=== PATIENT | male | born 1995 | race Caucasian/White ===

== ENCOUNTER 2022-01-27 08:00 | Outpatient (RCR) | payer OTHER, MEDICAID, SELFPAY ==
--- NOTE | 2022-01-27 09:00 | BH.COMM ---
Communication Note - Communication with Client Communication Note: Met with pt to update pre-admission screening. Completed initial paperwork. Completed [place] Suicide screening. Low-moderate risk. Consulted with Dr. Meek with plan to admit to [facility] level of care with dx of F33.2
--- NOTE | 2022-01-27 09:00 | BH.COMM_ITS ---
Communication Note - Communication with Client Communication Note: Met with pt to update pre-admission screening. Completed initial paperwork. Completed [place] Suicide screening. Low-moderate risk. Consulted with Dr. Meek with plan to admit to [facility] level of care with dx of F33.2
--- NOTE | 2022-01-27 10:05 | BH.SGPN.GN ---
Behaviors/Verbalizations/Mental Status: [] Client alert and oriented, neatly dressed and groomed. Eye contact good. Motor activity appropriate. Speech within normal limits. Affect congruent, mood euthymic. Thoughts linear, logical, no signs of hallucinations or delusions. Client Response/Progress/Benefit: [] Client's first day in program and as an active participant in group discussions. Attentive during psychoeducation on 4 types of conflict styles (Competing, Collaborating, Avoiding, and Accommodating). Worked with group to define conflict and identify how conflict is helpful. With peers identified barriers to addressing or managing conflict which included: fear of upsetting others, avoidance, high emotions, and poor communication. Client believes he uses the avoidant and competing style the most. Client shared this style leads to him not having a gan area in his responses and it makes relationships fail. Benefited from group due to increase insight and awareness of benefits to conflict, conflict styles, and obstacles to managing conflict. Will continue in IOP to utilize positive coping skills, gain healthier core beliefs, and increase overall functioning. Narrative Note: []
--- NOTE | 2022-01-27 11:05 | BH.SGPN.GN ---
Behaviors/Verbalizations/Mental Status: [] Client alert and oriented, neatly dressed and groomed. Eye contact good. Motor activity appropriate. Speech within normal limits. Affect congruent, mood euthymic. Thoughts linear, logical, no signs of hallucinations or delusions. Client Response/Progress/Benefit: []Client engaged in session AEB contributing to discussion and engaging in activity. Client did well to review current conflict style and its impact on mental health. Attentive during discussion on strategies for more effectively managing conflict in personal life. Client participated in activity and did well to be assertive and collaborating. Client given handout on fair fighting rules. Client indicated that he was going to work on reducing his stonewalling. Client shared he will avoid conflict event when it might benefit him to work through things. Appeared to benefit from gaining strategies to help client better manage conflict. Will continue IOP tx to reduce negative thinking patterns, increase overall functioning, and increase self-care. Narrative Note: []
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
[2022-01-28 10:30] VITALS: BP 112/59; PULSE 44
--- NOTE | 2022-01-28 11:15 | BH.SGPN.GN ---
Behaviors/Verbalizations/Mental Status: []Pt alert and oriented, casually dressed and groomed. Eye contact good. Motor activity appropriate. Speech within normal limits. Affect constricted, mood anxious. Thoughts linear, logical, no signs of hallucinations or delusions. Client Response/Progress/Benefit: []Pt participated at times during group discussions. Attentive during psychoeducation on the 4 A's of Coping with Stress (Avoid, Alter, Adapt, Accept). Participated in experiential activity in which group members had to utilize stress management skills in the moment. Pt agreed with peers that their anxiety and urge to stop was a barrier but pt worked well with peers to problem-solve. Pt engaged in review of the 4 A?s and picked wanting to work on altering work situations by challenging ?my pride? and asking for help and accepting it. Benefited from processing in the moment stress management strategies and identifying new ways to cope with stress. Will continue in IOP tx to prevent decompensation, improve daily functioning, and gain healthy coping skills. ? Narrative Note: []
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
--- NOTE | 2022-01-28 12:24 | BH.DR.ITP ---
Initial Treatment Plan Patient Information Visit Information: ADMISSION DATE: EXPECTED LOS: 4-6 weeks Problems/Symptoms Problem #1:: Mood instability Symptom:: Depression, sadness, hopelessness, worthlessness, guilt, biological disruption of sleep, biological disruption of appetite, decreased concentration, passive thoughts of , recent fleeting, passive suicidal ideation Symptom:: Symptoms of hypomania occurring once or twice a month possibly Problem #2:: Anxiety Symptom:: Worry, rumination, panic attacks, flashbacks, nightmares, reexperiencing, avoidance
--- NOTE | 2022-01-30 09:05 | BH.SGPN.GN ---
Behaviors/Verbalizations/Mental Status: [] Eye contact is good. Motor activity is appropriate. Appearance is disheveled. Speech is Appropriate. Mood is depressed. Affect is flat. Thoughts are linear and logical. No evidence of psychosis. Reviewed daily check in sheet and no reports of suicidal ideations or intent. Client Response/Progress/Benefit: [] Pt participated at times during the group discussion. Attentive. Daily symptom tracker notes 09/25 for depression and anxiety. Emotion for today is ?exhausted?. Mental health wins are ? I caught my thoughts while at work?. He elaborated on how he was able to reframe and challenge thoughts and incorporate assertive communication which worked out well during an interaction with a customer. His stressor involves his relationship with a female friend. He is vague regarding the relationship between them however states it has become strained recently. Progress noted per pt report. Benefited from group support, encouragement, and feedback. Will continue in IOP to maintain safety, increase healthy coping, and improve functioning. Narrative Note: []
--- NOTE | 2022-01-30 11:10 | BH.SGPN.GN ---
Behaviors/Verbalizations/Mental Status: []Pt alert and oriented, casually dressed and groomed. Eye contact good. Motor activity appropriate. Speech within normal limits. Affect constricted, mood anxious. Thoughts linear, logical, no signs of hallucinations or delusions. Client Response/Progress/Benefit: []Pt receptive of session, engaged throughout AEB pt actively listening and contributing to discussion, as well as taking notes.? Pt participated in the experiential activity and did well to communicate ideas with peers and manage emotions. Pt identified he felt anxious and used breathing. Pt and group processed how the emotions and perspective of the group impacted the activity. Group worked together to identify different coping skills to help manage pitfalls. Pt identified pitfalls they struggle with such as isolating and letting self-doubt control him. Pt will work on overcoming pitfalls by setting at least one intention a day. Benefited from identifying personal pitfalls and strategies to overcome these pitfalls. Will continue IOP tx to prevent decompensation, reduce negative thinking, and improve daily functioning. ?? Narrative Note: []
--- NOTE | 2022-02-02 09:00 | BH.SGPN.GN ---
Behaviors/Verbalizations/Mental Status: []Pt alert and oriented, casually dressed and groomed. Eye contact good. Motor activity appropriate. Speech within normal limits. Affect flat, mood anxious and depressed. Thoughts linear, logical, no signs of hallucinations or delusions. Reviewed pt?s symptom tracker, no risk for suicidal ideation, plan, or intent as of 02/02/22 Client Response/Progress/Benefit: []Pt responded well to session, attentive and receptive to support from peers. Pt reports feeling frustrated with himself this morning for being in such as spiral. Pt shared when he is depressed it is like being in the upside down where pt's reality is distorted. Pt shared he struggles to see a different way and to reach out for help when he is in a depressed episode. Pt did have some positives including going to the fair with his children and using skills while he was there. Pt appeared to benefit from emotional support and connecting with peers. Pt will continue IOP tx to prevent decompensation, gain healthy coping skills, and improve overall functioning. Narrative Note: []
--- NOTE | 2022-02-02 10:00 | BH.SGPN.GN ---
Behaviors/Verbalizations/Mental Status: [] Eye contact is good. Motor activity is appropriate. Appearance is casual. Speech is Appropriate. Mood is euthymic. Affect is congruent. Thoughts are linear and logical. No evidence of psychosis. Client Response/Progress/Benefit: [] Pt was an active participant in group discussions. Attentive during psychoeducation. Participated with peers in experiential activity. Pt participated in an interactive discussion with peers in which they worked together to define what coping skills are. Group then identified unhealthy coping skills which included; lashing out, hurting oneself, isolating, substance abuse, ignoring, sleeping to escape, and retail therapy. Psychoeducation on internal vs external coping skills. After experiential activity pt identified that I have poor internal and external coping skills. Shared that his coping base is not good. Benefited from increased awareness and education the benefits of have both internal and external coping skills. Will continue in IOP to maintain safety, prevent decompensation, and to stabilize mood. Narrative Note: []
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
--- NOTE | 2022-02-04 12:50 | BH.MDN_ITS ---
Multi-Disciplinary Note - Note 60-min Individual Time Started:: 11:30 Date: 02/04/22 Purpose of session/treatment goals addressed:: Risk assessment, pt's had called in this AM stating that pt verbalized to her that he was suicidal last evening and cut himself. States that he was isolating as well. Eye Contact:: Fair Motor Activity:: Restless Appearance:: Casual Speech:: Appropriate Mood:: Depressed Affect:: Flat Thoughts:: Linear, Logical, No evidence of hallucinations/delusions noted Staff Interventions:: completed risk assessment / safety planning Client Response:: Met with pt to discuss last evening and the days prior. Pt reports that he had been more depressed since Wednesday afternoon. No specific trigger noted as he reports that he is just in my head. After discussing further he has been ruminating on a long-time friendship with Saul and is fearful that things will change due to recent changes in Saul's life. He left work early yesterday due to his mental health stating I just felt safer at home. Ruminating thoughts revolving around friendship led to other thoughts that others are mad or hate me. Further stressor was that he has not been sleeping well for the past 3 days. He just shared today that he ran out of his Trazadone which helps him fall asleep. Pt reports that last evening he superficially cut himself on his left wrist. Hx of self-injurious behaviors. He states that he had a moment with intent to cut deeper however I just couldn't do that. Protective factors were his children and his friends. States I slammed the knife down and went upstairs. He then eventually was able to fall asleep. In the AM he disclosed everything to his and came to [facility]. According to his he was apathetic in the AM. This AM pt reports on tracker 2/5 for suicidal thoughts and 1/5 for intent. He filled out what his scores were yesterday (even though he was not here) and they were higher showing decreased intent from yesterday. He denies active suicidal ideations, plan, or intent with this therapist for today. He admits to passive thoughts of and survival ambivalence which he reports had been fairly consistent since Wednesday. He contracts for safety. Reports protective factors and is future-oriented. I'm mostly angry that it got as bad as it did yesterday. We began to reframe, challenge, and develop realistic affirmations to help him with negative automatic thoughts. We reviewed the events and thoughts yesterday and identified strategies that could have been implemented to ease distress. We then developed a safety plan for this evening which included recognizing warning signs, internal coping skills, reasons/motivations to live, people and settings that provide distraction, supports to call when in crisis, and ways to make the environment safe. He agreed to have his lock up knives and medications. No access to guns. was called after session to discuss symptoms and plan. She is agreeable. Risks/Concerns:: refer above. Denies suicidal ideations, plan, or intent. No hx of attempts. Reports passive thoughts of and survival ambivalence and ruminations since Wednesday along with poor sleep led to superficial cutting last evening. Hx of self-injurious behaviors. While cutting he reports thought with intent to cut deeper however stated I couldn't do it. Disclosed to and attended treatment today. Suicidal ideation with intent lasted only moments. Motivated. Protective factors kept him from harming self. Contract for safety. We discussed voluntary admission and pt declined. Reports feeling better after coming in today and decreased symptoms. Progress Toward Goals/Plan:: No progress noted. Completed safety plan (Refer above). Refill on Trazadone was also called in to help with sleep which according to pt was significant contributor to decompensation. Usually if I get good sleep it doesn't get to bad. He reports these depressive episodes typically last 3-4 days which he is on day three. Plan is to continue in IOP to maintain safety, prevent decompensation, and increase healthy coping. Pt agreeable to calling off work for tonight and tomorrow. Agreeable to coming into IOP tomorrow. Will check in with pt this afternoon. Time Stopped:: 12:30
--- NOTE | 2022-02-04 14:14 | BH.COMM_ITS ---
Communication Note - Communication with Client Communication Note: Checked in with pt via phone call. Pt is doing okay at home, reports he is relaxing and plans to watch a movie with his kids later. Pt talked to his boss and will be off work the next two days. Pt also got one of his medications refilled which will hopefully help pt with sleep. Pt continues to contract for safety and will be at [facility] tomorrow.
--- NOTE | 2022-02-05 09:05 | BH.SGPN.GN ---
Behaviors/Verbalizations/Mental Status: [] Eye contact is poor. Motor activity is appropriate. Appearance is casual. Speech is Appropriate. Mood is depressed. Affect is flat. Thoughts are linear and logical. No evidence of psychosis. Reviewed daily check in sheet and pt reports 2.5 for suicidal ideation and 0/5 for intent. This is improved from yesterday. Client Response/Progress/Benefit: [] Pt participated when prompted. Attentive. Daily symptom tracker notes 4/5 for depression and 3/5 for anger. Mental health win was that I used skills yesterday to get out of my head. He continues to report depression and distress. Primary stressor are external ( and friend) however he continues to ruminate excessively. He did not elaborate more on his stressors and group did not pressure him. No progress noted from yesterday. Benefited from group support and encouragement. Will continue in IOP to maintain safety, prevent decompensation, and increase healthy coping. Narrative Note: []
--- NOTE | 2022-02-05 10:26 | BH.COMM ---
Communication Note - Communication with Client Communication Note: Pt left group earlier today due to stomach issues. Pt denied any active suicidal ideations, plan, or intent to this therapist. Pt contracts for safety. Pt reported his took his medications. Pt's daily symptom tracker scores for SI were lower today than they were earlier this week as well. Pt is scheduled to be in IOP tomorrow.
--- NOTE | 2022-02-06 09:22 | BH.COMM ---
Communication Note - Communication with Client Communication Note: Pt no called no showed for IOP tx today. Therapist attempted to call pt twice and pt's phone was not accepting calls at this time. Therapist called pt's and shared last night was really rough. Pt was struggling to keep himself safe, but did not do anything to hurt himself last night. Pt's has pt's medications and secured all the knives in the house. Pt told that pt was leaving her, so is not staying with pt. Pt spoke to his daughters this morning per , but there is no support there with pt today. Due to pt experiencing a significant stressor, recent SI and self-harm, and lack of support with pt today, this therapist will be calling Stephanie VENTURA for a safety check.
--- NOTE | 2022-02-06 09:28 | BH.COMM ---
Communication Note - Communication with Client Communication Note: Therapist called Stephanie VENTURA for a safety check on pt. See additional communication note for details.
--- NOTE | 2022-02-06 09:51 | BH.COMM_ITS ---
Communication Note - Communication with Client Communication Note: Therapist spoke with policy officer. Pt is safe and was at home. Therapist called to tell her pt was safe.
--- NOTE | 2022-02-06 09:51 | BH.COMM ---
Communication Note - Communication with Client Communication Note: Therapist spoke with police lieutenant patrol. Pt is safe and was at home. Therapist called to tell her pt was safe.
--- NOTE | 2022-02-06 11:04 | BH.COMM ---
Communication Note - Communication with Client Communication Note: Pt showed up to IOP. Pt expressed being suicidal and unable to keep self safe. Pt agreeable to walk with therapist to the ER. was informed.
--- NOTE | 2022-02-06 11:06 | BH.DS_ITS ---
Discharge Summary - Demographics Date of Admission:: 01/27/22 Discharge Date: 02/06/22 Presenting Problems at Admission:: Pt is a 26-year-old male with a history of depression and anxiety. Pt has no previous psychiatric admissions. Pt was referred to [facility] by his outpatient therapist and due to worsening depressive symptoms since May 2021. At admission, pt endorsed poor sleep, loss of appetite (100 pound weight loss in the last year), isolation, hopelessness, worthlessness, and anhedonia. Pt endorsed passive thoughts of and had suicidal ideations within the past few months. Pt sees a counselor weekly, but this was not meeting the level of care pt needed for his symptoms. Pt also endorsed racing thoughts, panic attacks, and erratic moods. Pt's symptoms are currently impacting his overall functioning. Discharge Diagnoses:: Bipolar 2 disorder, most recent episode depressed; Generalized anxiety disorder; PTSD; Nicotine and marijuana use disorder Reason for Discharge:: Due to presenting suicidal ideations, significant stressor last night, and inability to contract for safety, it was determined that pt was in need of higher level of care to maintain safety. Pt voluntarily went to the [facility] ER to be further evaluated for suicidal ideations. Pt will be discharged from [facility] at this time due to needing a higher level of care. - Treatment Progress During Treatment & Response: Limited progress as pt stated [facility] on 01/27/22. Pt was cooperative and receptive to help from staff. Issues Still to be Addressed:: Depressed mood, suicidal ideations, self-hate, relationship issues, anxiety, lack of sleep, no appetite, racing thoughts, and mood instability. Discharge Recommendations/Instructions:: Pt recommended to follow instructions from the ER and inpatient team where pt will be transferred. Pt can return to [facility] when he discharges from the hospital. Discharge Handout: Complete Discharge Handout with client on aftercare options and continuity of care.
== END 2022-02-06 10:58 ==
LOC: BHIOP 08:00
PROVIDERS: Visit Provider Psychiatry & Neurology Psychiatry
DX: F31.81 Bipolar II disorder (principal); F41.1 Generalized anxiety disorder; F43.10 Post-traumatic stress disorder, unspecified; F17.200 Nicotine dependence, unspecified, uncomplicated; F12.99 Cannabis use, unspecified with unspecified cannabis-induced disorder; Z79.899 Other long term (current) drug therapy
CPT/HCPCS: H2012; S9480; 90832; 90837; 90853

== ENCOUNTER 2022-02-06 10:18 | Emergency (ER) | payer OTHER, MEDICAID, SELFPAY ==
--- NOTE | 2022-02-04 09:05 | BH.SGPN.GN ---
Behaviors/Verbalizations/Mental Status: [] Eye contact is poor. Motor activity is appropriate. Appearance is casual. Speech is Appropriate. Mood is depressed. Affect is flat. Thoughts are linear and logical. No evidence of psychosis. Reviewed daily check in sheet and no pt reports 2/5 for suicidal thoughts and 2/5 for intent. Client Response/Progress/Benefit: [] Pt participated only when prompted. Distracted. Poor eye contact. Daily symptom tracker notes 5/5 for depression and 3/5 for anxiety. 2/5 for self-harm. Pt shared that his mental health win was that ?I called off work yesterday due to my mental health?. Pt has struggled to call off when overwhelmed physically or emotionally in the past. States that he is not in a good place today stating ?I?ve been in my head a lot?. He did not elaborate and was not pressured by therapist/group. No progress noted. Limited benefit. Will continue in IOP to maintain safety and prevent decompensation. Narrative Note: []
[2022-02-06 10:19] VITALS: BP 132/82; PULSE 89; RESP 18; TEMP 36.6; O2SAT 100; BMI 23.4
--- NOTE | 2022-02-06 10:32 | EKG12_ITS ---
Test Reason : MEDICAL CLEARANCE Blood Pressure : / mmHG Vent. Rate : 062 BPM Atrial Rate : 062 BPM P-R Int : 162 ms QRS Dur : 106 ms QT Int : 400 ms P-R-T Axes : 065 041 059 degrees QTc Int : 406 ms Normal sinus rhythm Normal ECG Confirmed by FREDDY BOWSER, QAMAR ([id number]), digital editor JESSICA SANABRIA ([id number]) on 02/09/2022 10:57:08 AM Referred By: Confirmed By:QAMAR HAYES MD
--- NOTE | 2022-02-06 10:33 | EX.ED.VIS.PS ---
HPI HPI - Psych History of Present Illness Chief Complaint: Suicidal Informant: patient and mental health staff Narrative Narrative: 26-year-old male presenting to the emergency department from the [facility] program for which she was referred to for the evaluation of suicidal ideation. He tells me that he sees the world with a veil over his eyes and views it that everybody is mad or angry at him. He states that few days ago he was hostile towards himself meaning that he began to cut his left wrist. Does have a history of cutting behavior. Last night he got into an argument with one of his friends and got in his car to clear his head. He was about to run out of gas so he went home and was unable to clear his head and got into an argument with his and said things which he does not expound upon. He states that she kicked him out. He has been on trazodone for approximately 4 months through an outpatient provider in [place]. He states the Prozac that he was prescribed he has not been consistent with. He admits to recreational marijuana use 1 time per week. He has 2 children ages 6 and 3 which are currently with their mother. He states he cannot contract for safety. [facility] Medical History Bipolar 2 disorder Cannabis use disorder Generalized anxiety disorder Nicotine use disorder PTSD (post-traumatic stress disorder) Home Medications fluoxetine 20 mg capsule (Prozac) 20 mg PO DAILY 01/28/22 [History Last Taken Unknown] trazodone 50 mg tablet 100 mg PO QHS 01/28/22 [History Last Taken Unknown] Allergy/AdvReac Type Severity Reaction Status Date / Time No Known Allergies Allergy Verified 02/06/22 10:22 Social History (Updated 02/06/22 @ 10:[address] Marlo Roca DO) Smoking Status: Never smoker substance use type: marijuana ROS ROS ED Constitutional Constitutional ED: Denies chills or weight loss Eyes Eyes: Denies change in vision or diplopia ENT ENT ED: Denies ear pain, rhinorrhea or sore throat Cardiovascular Cardiovascular: Denies chest pain, orthopnea, palpitations or racing heartbeat Respiratory/Chest Respiratory/Chest: Denies cough, dyspnea or orthopnea Gastrointestinal Gastrointestinal: Denies abdominal pain, diarrhea, nausea or vomiting Genitourinary Genitourinary ED: Denies dysuria, hematuria or urinary frequency Musculoskeletal Musculoskeletal: Denies arthralgias or myalgias Integumentary Denies abscess or rash Neurologic Neurologic: Denies headache(s) or weakness Psychiatric Psychiatric: Reports depression, suicidal ideation and suicidal thoughts; Denies anxiety Endocrine Endocrinology: Denies polydipsia, polyphagia or polyuria Allergic/Immunologic Allergic/Immunologic ED: Denies mouth swelling, tongue swelling or urticaria EXAM Physical Exam Const Vital Signs: 02/06/22 10:19 02/06/22 11:18 02/06/22 12:00 Temperature 97.9 F Temperature Source Temporal Pulse Rate 89 Respiratory Rate 18 18 18 Blood Pressure 132/82 H Blood Pressure Mean 98 Pulse Ox 100 Oxygen Delivery Method Room Air 02/06/22 13:00 02/06/22 13:25 Temperature Temperature Source Pulse Rate 62 Respiratory Rate 18 18 Blood Pressure 122/84 H Blood Pressure Mean 96 Pulse Ox 98 Oxygen Delivery Method Room Air Positive well nourished and well developed General Appearance ED: well developed HEENT Reports normocephalic, head/scalp atraumatic and moist mucous membranes Eyes PERRL and EOMs intact bilaterally Neck no lymphadenopathy, supple and no JVD Resp normal respiratory effort and clear to auscultation bilaterally Cardio regular rate, regular rhythm and no murmurs GI normal to inspection, nondistended, normoactive bowel sounds and non-tender Palpation: soft Back/Spine no CVA tenderness and normal ROM Extremity normal to inspection General Extremety ED: Negative for edema General Extremity: Negative for edema Neuro oriented x3 and CN's II-XII intact bilaterally Sensorium / Orientation: alert Motor Exam: strength 5/5 throughout Psych mental status grossly normal Appearance: grossly normal Attitude: guarded Activity / Motor Behavior: avoids eye contact Speech: slow Mood & Affect: depressed, sad and flat affect; Negative for tearful Thought Process: normal thought process Thought Content: suicidality Attention / Concentration: attention grossly intact Memory / Cognition: memory grossly intact Skin no rashes or lesions noted and no wounds MDM MDM MDM Narrative Medical decision making narrative: Toxicology work-up is significant for cannabis which she admits to. CBC CMP within normal limits. COVID test is negative. Patient was evaluated by social work who is in agreement that the patient would be best served by psychiatric evaluation. We currently have accepting to [facility] in [place]. The patient has been cooperative and nonviolent since here in the department. Lab Data Attestation: I reviewed the patient's lab results. Labs: Laboratory Results - last 24 hr 02/06/22 02/06/22 02/06/22 10:45 10:45 10:45 WBC 4.4 RBC 5.50 Hgb 16.3 Hct 48.0 MCV 87.3 MCH 29.6 MCHC 34.0 RDW Std Deviation 38.2 RDW Coeff of Stan 11.9 Plt Count 224 MPV 9.7 Immature Gran % (Auto) 0.200 Neut % (Auto) 72.2 H Lymph % (Auto) 14.7 L Billings % (Auto) 12.5 H Eos % (Auto) 0.2 Baso % (Auto) 0.2 Absolute Neuts (auto) 3.2 Absolute Lymphs (auto) 0.65 L Nucleated RBC % 0 Sodium 142 Potassium 4.0 Chloride 110 H Carbon Dioxide 24.0 Anion Gap 8 BUN 13 Creatinine 0.95 Estim Creat Clear Calc 123.30 Est GFR (MDRD) Af Amer 122 Est GFR (MDRD) Non-Af 101 BUN/Creatinine Ratio 13.7 Glucose 100 Calcium 9.3 Total Bilirubin 0.80 AST 10 L ALT 17 Alkaline Phosphatase 56 Total Protein 8.2 Albumin 4.6 Globulin 3.6 Albumin/Globulin Ratio 1.3 Urine Opiates Screen Urine Methadone Screen Ur Barbiturates Screen Ur Phencyclidine Scrn Ur Amphetamines Screen MDMA (Ecstasy) Screen U Benzodiazepines Scrn Urine Cocaine Screen U Cannabinoids Screen Ur Drug Screen Comment Ethyl Alcohol < 3.0 02/06/22 12:06 WBC RBC Hgb Hct MCV MCH MCHC RDW Std Deviation RDW Coeff of Stan Plt Count MPV Immature Gran % (Auto) Neut % (Auto) Lymph % (Auto) Billings % (Auto) Eos % (Auto) Baso % (Auto) Absolute Neuts (auto) Absolute Lymphs (auto) Nucleated RBC % Sodium Potassium Chloride Carbon Dioxide Anion Gap BUN Creatinine Estim Creat Clear Calc Est GFR (MDRD) Af Amer Est GFR (MDRD) Non-Af BUN/Creatinine Ratio Glucose Calcium Total Bilirubin AST ALT Alkaline Phosphatase Total Protein Albumin Globulin Albumin/Globulin Ratio Urine Opiates Screen NEGATIVE Urine Methadone Screen NEGATIVE Ur Barbiturates Screen NEGATIVE Ur Phencyclidine Scrn NEGATIVE Ur Amphetamines Screen NEGATIVE MDMA (Ecstasy) Screen NEGATIVE U Benzodiazepines Scrn NEGATIVE Urine Cocaine Screen NEGATIVE U Cannabinoids Screen POSITIVE H Ur Drug Screen Comment Ethyl Alcohol EKG Initial EKG: Attestation: I personally reviewed and interpreted this EKG as follows: Comments: Normal sinus rhythm with a ventricular rate of 62 bpm Discharge Plan Triage Chief Complaint: Suicidal ED Provider: Marlo Roca Dx/Rx/DC Orders Clinical Impression: Depression, Suicidal ideation Prescriptions: No Action trazodone 50 mg Tablet 100 mg PO QHS fluoxetine [Prozac] 20 mg Capsule 20 mg PO DAILY Primary Care Provider: Care Physician,No Primary Referrals: Sanjiv Walker MD [Non-Staff] - Disposition Disposition: Psychiatric Hospital or Unit
--- NOTE | 2022-02-06 10:38 | NURSING ---
NO OLD EKGS
[2022-02-06 10:57] LABS: Absolute Lymphocyte Count 0.65 X10^3/uL (0.83-4.51); Absolute Neutrophil Count 3.2 X10^3/uL (2.0-7.7); Basophil# 0.01 X10^3/uL; Basophil% 0.2 % (0-1); Eosinophil# 0.01 X10^3/uL; Eosinophils% 0.2 % (0-5); Hemoglobin 16.3 g/dL (13.0-16.5); Lymphocyte # 0.65 X10^3/ul (0.83-4.51); Lymphocyte % 14.7 % (19-41); Mean Corpuscular Hgb 29.6 pg (27.0-32.0); Mean Corpuscular Volume 87.3 fL (80-94); Mean Platelet Vol. 9.7 fl (6.2-12.0); Monocyte# 0.55 X10^3/uL; Monocyte% 12.5 % (0-10); NRBC Flagged by Analyzer 0 % (0-5); Neutrophil # 3.18 X10^3/uL (2.7-7.7); Neutrophil % 72.2 % (47-70); Platelet Count 224 K/mm3 (150-450); RBC Distribution Width CV 11.9 % (11.6-14.6); RBC Distribution Width SD 38.2 fl (35.1-43.9); White Blood Count 4.4 K/mm3 (4.4-11.0)
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
[2022-02-06 11:13] LABS: ALB/GLOB Ratio 1.3 RATIO (0.9-2.4); AST(SGOT) 10 U/L (15-37); Alanine Aminotransfer ALT/SGPT 17 U/L (16-61); Albumin, Serum 4.6 g/dL (3.2-5.0); Alkaline Phosphatase 56 U/L (45-117); Anion Gap 8 (5-15); BUN 13 mg/dL (7-18); BUN/Creat Ratio 13.7 RATIO (10-20); Calcium,Total 9.3 mg/dL (8.5-10.1); Chloride 110 mmol/L (98-107); Creatinine, Serum 0.95 mg/dL (0.70-1.30); EST Glomerular Filtration Rate 101 mL/min (>60); Est Glom Filt Rate - Afr Amer 122 mL/min (>60); Globulin 3.6 g/dL (2.2-4.2); Glucose 100 mg/dL (74-106); Protein, Total 8.2 g/dL (6.4-8.2); Sodium Level 142 mmol/L (136-145)
[2022-02-06 11:18] VITALS: RESP 18
[2022-02-06 11:22] LABS: Alcohol, Blood (Medical)-Serum < 3.0 mg/dL
[2022-02-06 12:00] VITALS: RESP 18
[2022-02-06 12:30] LABS: Amphetamine Urine VISTA NEGATIVE (<1000 ng/mL); Barbiturate Urine VISTA NEGATIVE (< 200 ng/mL); Benzodiazepine Urine VISTA NEGATIVE (< 200 ng/mL); Cocaine Urine VISTA NEGATIVE (< 300 ng/mL); Ecstacy Urine VISTA NEGATIVE (< 500 ng/mL); Methadone Urine VISTA NEGATIVE (< 300 ng/mL); PCP Urine VISTA NEGATIVE (< 25 ng/mL); THC Urine VISTA POSITIVE (< 50 ng/mL); Vista UDS pH Range 5
--- NOTE | 2022-02-06 12:34 | CM.ED ---
MARIAA called [facility] and spoke to Giovanni at call center. MARIAA made referral. MARIAA faxed referral to [facility]. MARIAA spoke to Giovanni and he voiced he had all the information. Jelena OLIVARES
[2022-02-06 13:00] VITALS: BP 122/84; PULSE 62; RESP 18; O2SAT 98
--- NOTE | 2022-02-06 13:14 | ED.RN ---
REPORT ATTEMPT MADE FOR [facility]. THIS RN ASKED TO CALL BACK AFTER 30 MINS
--- NOTE | 2022-02-06 13:17 | NURSING ---
CALLED [facility], ETA IS 30 MIN
[2022-02-06 13:25] VITALS: RESP 18
--- NOTE | 2022-02-06 13:40 | CM.ED ---
Scott from [facility] Called. Patient accepted by Dr. Lua. Accepted at [facility]. Center 5 bed 2555. Report to [phone]. Scott requested that the pink slip, made out to [facility], be faxed to [phone]. MARIAA updated RN and dog food shredder operator. Jessy, school community relations coordinator to fax pink slip. Plan: [facility] Jelena OLIVARES
--- NOTE | 2022-02-06 13:48 | ED.RN ---
UPON ASSESSMENT OF PATIENT, PATIENT TELLS THIS RN THAT HE AND SIGNIFICANT OTHER ARE HOMELESS. THIS RN OFFERS PT AND RESOURCES. THEY STATE THEY ARE AWAITING VERIFICATION OF INCOME FOR AN APARTMENT. THIS RN MAKES JOHNSON FROM SOCIAL WORK AWARE.
== END 2022-02-06 13:48 ==
PROVIDERS: Emergency Provider Emergency Medicine; Visit Provider Emergency Medicine
DX: F31.81 Bipolar II disorder (principal); X78.9XXA Intentional self-harm by unspecified sharp object, initial encounter; F41.1 Generalized anxiety disorder; R45.851 Suicidal ideations; Z20.822 Contact with and (suspected) exposure to COVID-19; S61.512A Laceration without foreign body of left wrist, initial encounter; Z79.899 Other long term (current) drug therapy
CPT/HCPCS: 80053; 80307; 82077; 85025; 87811; 93005; 99284

== ENCOUNTER 2022-02-10 08:00 | Outpatient (RCR) | payer OTHER, MEDICAID, SELFPAY ==
--- NOTE | 2022-02-10 11:02 | BH.SGPN.GN ---
Behaviors/Verbalizations/Mental Status: []Client alert and oriented, casually dressed and groomed. Eye contact good. Motor activity appropriate. Speech within normal limits. Affect congruent, mood euthymic and anxious. Thoughts linear, logical, no signs of hallucinations or delusions. Client Response/Progress/Benefit: []Client responded well to session AEB completing the resilience worksheet provided. Client participated in the discussion of how each resiliency component can help increase personal resiliency and worked cooperatively with group to identify strategies to enhance each of the components discussed. Client reported he feels he is doing well with the resilience traits of ?take care of yourself? and ?self-awareness?. Client stated he would like to continue to develop resilience trait of ?take care of yourself? by challenging himself to get back into meal planning and prepping. Client seemed to benefit from discussing strategies for improving personal resilience and identifying resilience traits client already possesses. Progress limited as pt still new to IOP program following recent hospitalization. Will continue IOP tx to prevent decompensation, continue to promote use of healthy coping skills, and maintain safety. Narrative Note: []
--- NOTE | 2022-02-10 13:23 | BH.COMM ---
Communication Note - Communication with Client Communication Note: Met with pt to update pre-admission screening since recent hospitalization. Completed initial paperwork. Completed [facility] Suicide screening. moderate risk, though denies any current intent or access to lethal means. Consulted with Dr. Meek with plan to admit to [facility] level of care with dx of F33.2
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
--- NOTE | 2022-02-10 13:25 | BH.MDN ---
Multi-Disciplinary Note - Note 30-min Individual Time Started:: 09:05 Date: 02/10/22 Purpose of session/treatment goals addressed:: To assess for risk, as well as gather information on pt's current stressors, symptoms, triggers, and tx goals since recent hospitalization. Another goal was to build rapport and provide emotional support. Eye Contact:: Good Motor Activity:: Appropriate Appearance:: Casual Speech:: Appropriate Mood:: Anxious Affect:: Congruent Thoughts:: Linear, Logical, No evidence of hallucinations/delusions noted Staff Interventions:: motivational interviewing, CBT techniques, rapport building, strengths perspective, treatment planning, goal setting Client Response:: Pt responded well to session, open to meeting with therapist. Pt reports he feels his recent hospitalization had been very beneficial and allowed him the time needed to reflect upon his priorities and begin taking steps to address several stressors impacting his mental health. Pt reports he and his have seen much improvement in their relationship since hospitalization as communication is significantly better over the past few days. Reports he is taking some time away from his relationship with his best friend as well, as this has been an area of stress. Noted work as a current stressor as he does not feel ready to return at this time but has plans to discuss options for taking a leave of absence with his employer today. Pt reports plans to continue working with his outpatient therapist on deeper things and is excited to begin addressing questions he has had regarding his own gender identity. Reports this has been a difficult area to explore in the past but feels it is crucial in making progress with his mental health. Shared wanting to focus on creating a healthy routine and implementing more structure in his life, giving himself more bill, and practicing more consistent use of healthy coping skills as goals for [facility] tx. Risks/Concerns:: Pt denies any active suicidal ideations, plan, or intent as of 02/10/22. No HI. Future oriented. Progress Toward Goals/Plan:: Pt is starting his first week of readmission to [facility] tx following recent discharge due to hospitalization. He reports he is looking forward to learning more about his mental health and improving his understanding of healthy ways to manage his depression. Pt identifies his treatment goals as learning healthy coping skills to manage his depression symptoms and improving overall self-acceptance. Pt currently endorses anxiety, ruminations, racing thoughts, and questioning himself and his relationships. Pt has an outpatient therapist, Bertha, at [facility] that he will continue to see. Pt will continue IOP tx to prevent decompensation, gain healthy coping skills, and reduce negative thinking. Time Stopped:: 09:37
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
--- NOTE | 2022-02-17 11:10 | BH.SGPN.GN ---
Behaviors/Verbalizations/Mental Status: [] Client alert and oriented, casually dressed and groomed. Eye contact good. Motor activity appropriate. Speech within normal limits. Affect congruent, mood euthymic and anxious. Thoughts linear, logical, no signs of hallucinations or delusions. Client Response/Progress/Benefit: [] Client was an active participant throughout AEB contributing to discussion, providing personal examples, and taking notes. Client provided input during discussion on the types of support our supports can provide. Client able to identify current support system and barriers that get in the way of using supports by drawing out their own support net. Client reported after identifying what type of supports they receive; they gained awareness that they could benefit from more tangible supports. Client identified steps to achieve this by reaching out more and letting himself rely on supports. Client shared increasing tangible supports will help him minimize the stress on his shoulders. Client seemed to benefit from identifying the type of support client needs to work on improving. Client recommended to continue IOP tx to prevent decompensation, increase use of coping skills, and increase emotional regulation skills. Narrative Note: []
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
--- NOTE | 2022-02-18 09:02 | BH.SGPN.GN ---
Behaviors/Verbalizations/Mental Status: []Pt alert and oriented, casually dressed and groomed. Eye contact good. Motor activity appropriate. Speech within normal limits. Affect congruent, mood euthymic. Thoughts linear, logical, no signs of hallucinations or delusions. Reviewed pt?s symptom tracker, risk for suicidal ideation reported as within pt baseline, denies plan, or intent as of 02/18/22 Client Response/Progress/Benefit: []Pt responded well to session, attentive and reports connecting with fellow participants throughout. Pt reports feeling ?content this morning as pt shared he was able to reconnect with a close support and that this went well. Additionally reports a win as making plans to get a new wardrobe tomorrow as this is something he has put off since losing weight over the past year. Stressor identified as social media and pt identified a goal to deactivate his Facebook to remove this stressor for now. Pt appeared to benefit from support of the group environment. Pt to continue IOP tx to continue to improve stress management skills, reduce depression, and further improve mood stability. Narrative Note: []
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
[2022-02-18 11:11] VITALS: BP 119/72; PULSE 42
--- NOTE | 2022-02-18 12:35 | PCM.BH.PN_ITS ---
Progress Note Progress Note: Interim note: This note will serve as an interim note and for further detail please see in the initial psychiatric evaluation from February 10, 2022 for further reference. History of Present Illness/Interim History: The patient is a 26-year-old male who started the [facility] behavioral health IOP program on January 27, 2022. He then was admitted to [facility] for suicidal ideations from February 06 to February 09, 2022. After discharge then he is readmitted to the [facility] today. The patient's recent admission was triggered after he had difficulties with his whom he asked for divorce at the time. He also told his best friend Saul that he was in love with them. Since being admitted to [facility] he has worked things out with his who is a part of his new safety plan created at [facility]. His helps him with medication compliance and he also is taking a break from work after a positive talk with his boss. 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 He states that since discharge from the hospital recently he is having less panic attacks since he has been on the Prozac and his coping skills he has learned in the group are helping him deal with his mental health issues. He is now only having 1 panic attack a week about. Since discharge he is feeling better. He remains depressed mostly but he is somewhat hopeful now. He is sleeping about 6 hours a night which is normal for him and his energy level is low during the day. He feels that at times during the groups he spaces out and feels that he misses hearing things in group. When his attention returned to the group he does know where he has he just does not know what he missed hearing. This is an old problem for him. He has some questions about his gender issues and is working on that here with his therapist, Lelia mccullough at the [facility] IOP program. The patient states he is having some stomach pains which he is seeing his PCP today to talk about and treat. In addition he has reached out to supports outside of his and his friend Saul and this includes an old friend Ranjana whom he met up with over the weekend to catch up. Current Psychiatric Medications: [] Prozac 20 mg p.o. daily (x5 weeks); trazodone 100 mg p.o. nightly Mental Status Examination: [] The patient is a 26-year-old male who appears normal for stated age and is seen wearing a hat and is casually dressed and groomed with good hygiene. He has is ambulatory with a normal gait and alert and oriented to person place and time. He is cooperative and pleasant during the interview. He has no psychomotor agitation or retardation. Eye contact is good and speech is regular rate and rhythm and fluent with no pressure. Mood is depressed. Affect is constricted. Thought process is goal- directed and organized. Thought content: There is no evidence of thoughts of , suicidal ideation, homicidal ideation or urges to self-harm. There is no evidence of hallucinations, delusions or symptoms of carlos a. Reality testing is intact. Intelligence is average. Impulsivity is moderate. Judgment is intact. Insight is limited. Diagnoses: [] 1. Bipolar 2 disorder (most recent episode depressed) 2. Generalized anxiety disorder 3. PTSD 4. Strong cluster B traits 5. Nicotine and marijuana use disorder 6. Primary support issues Plan: [] The patient will continue 10 you and restart the IOP program at [facility] as the structure, support, education and group therapy will hopefully prevent worsening of the patient's symptoms which might require rehospitalization. He felt safe during the interview and if it anytime he does not feel safe he will let us know or go to the emergency room. The risks, clot complications, possible side effects and options with the medications were discussed with the patient and he understands and accepts these. The patient does not wish to increase his Prozac at this time. He agrees to increase his trazodone to 150 mg or even 200 mg nightly if needed to improve sleep. He plans to decrease his marijuana use somewhat. He will continue to follow-up with his outpatient providers and I will see the patient in follow-up in 2 weeks.
--- NOTE | 2022-02-18 12:43 | BH.DR.ITP ---
Initial Treatment Plan Patient Information Visit Information: ADMISSION DATE: EXPECTED LOS: 4-6 weeks Problems/Symptoms Problem #1:: Mood instability Symptom:: Depression, irritability, fatigue, decreased concentration, sadness Symptom:: Recent suicidal ideation Problem #2:: Anxiety Symptom:: Worry, rumination
--- NOTE | 2022-02-20 09:02 | BH.SGPN.GN ---
Behaviors/Verbalizations/Mental Status: []ye contact fair, casually dressed, motor activity appropriate, speech normal rate and tone, mood depressed, constricted affect, thoughts linear and intact, no evidence of delusions or hallucinations. Reviewed pt's symptom tracker, no indication of suicidal ideation or intent. Client Response/Progress/Benefit: [] Client respond well to session as evidenced by listening attentively to others and sharing thoughts and feelings. Client did not find mental positive as getting clothes yesterday that actually fit him. Client and friend additional positive was getting to spend quality time with his daughter yesterday playing video games together. Identified current stressor as myself because his mood continues to be irritable but tries to act fine on the outside. Client seen a benefit from expressing thoughts and feelings. Client to continue IOP to improve emotional regulation, challenge negative thought patterns, and prevent decompensation. Narrative Note: []
--- NOTE | 2022-02-20 10:10 | BH.SGPN.GN ---
Behaviors/Verbalizations/Mental Status: []Eye contact is good. Motor activity is appropriate. Appearance is casual. Speech is Appropriate. Mood is dysthymic and anxious. Affect is constricted. Thoughts are linear and logical. No evidence of psychosis. Client Response/Progress/Benefit: []Pt was an active participant in group discussions. Attentive during psychoeducation and participated in interactive discussions in which group defined self-care, discussed the benefits to self-care, and identified common myths surrounding self-care. Pt shared that ?self-care can make you more attentive in personal relationships? but that he often struggles to believe he deserves time for his own self-care. Group identified that self-care myths include; self-care is selfish, self-care is just personal hygiene, self-care should be fun, self-care is too time consuming, and I don?t deserve it. Pt and peers broke into smaller group and worked together to bust the myths associated with self-care. Benefited from increased awareness of the importance of self-care and its benefits. Progress noted in increased ability to provide personal insight into his own mental health. Will continue in IOP to prevent decompensation, increase emotion regulation skills and depression management, and improve functioning. Narrative Note: []
--- NOTE | 2022-02-20 11:10 | BH.SGPN.GN ---
Behaviors/Verbalizations/Mental Status: []Pt alert and oriented, neatly dressed and groomed. Eye contact good. Motor activity appropriate. Speech within normal limits. Affect constricted, mood content. Thoughts linear, logical, no signs of hallucinations or delusions. Client Response/Progress/Benefit: []Pt engaged participant AEB completing self-assessment worksheet and taking notes. Participated throughout group discussion on the various areas of self-care. Pt completed worksheet which identified current self-care practices and what self-care activities pt wants to start using. Pt selected spiritual self-care to begin practicing more consistently. Pt plans to do this by trying yoga and meditation. Appeared to benefit from completing the self-care evaluation and gaining insights into current self-care practices, as well as identifying areas in which pt would like to improve upon. Will continue IOP tx to reduce negative thinking patterns, improve self-compassion, and decrease depressive symptoms. Narrative Note: []
== END 2022-02-20 23:59 ==
LOC: BHIOP 08:00
PROVIDERS: Visit Provider Psychiatry & Neurology Psychiatry
DX: F31.81 Bipolar II disorder (principal); F41.1 Generalized anxiety disorder; F43.10 Post-traumatic stress disorder, unspecified; Z72.0 Tobacco use; F12.90 Cannabis use, unspecified, uncomplicated
CPT/HCPCS: S9480; 90832; 90853

== ENCOUNTER 2022-02-23 09:02 | Outpatient (RCR) | payer OTHER, MEDICAID, SELFPAY ==
[2022-02-21 01:50] VITALS: BP 119/72; PULSE 42
--- NOTE | 2022-02-24 10:05 | BH.SGPN.GN ---
Behaviors/Verbalizations/Mental Status: []Eye contact is fair to good. Motor activity is appropriate. Appearance is casual. Speech is Appropriate. Mood is depressed and anxious. Affect is congruent. Thoughts are linear and logical. No evidence of psychosis. Client Response/Progress/Benefit: []Pt was an active participant in group discussions. Attentive during psychoeducation and nodding as fellow participants shared. Participated with peers in experiential activity and provided ideas to the group. Pt participated in an interactive discussion with peers in which they worked together to define what coping skills are. Pt shared that we often turn to using unhealthy coping skills because they tend to be easier. Group then identified unhealthy coping skills which included; lashing out, negative self-talk, isolating, substance abuse, avoidance, sleeping to escape, and distracting self with other?s problems. Pt identified use of lashing out or isolating in the past. Psychoeducation on internal vs external coping skills. Benefited from increased awareness and education on the benefits of having both internal and external coping skills. Will continue in IOP to promote healthy skill application, continue to improve mood management, and prevent decompensation. Narrative Note: []
--- NOTE | 2022-02-24 11:07 | BH.SGPN.GN ---
Behaviors/Verbalizations/Mental Status: []alert and oriented, neatly dressed and groomed. Eye contact fair to good. Motor activity appropriate. Speech within normal limits. Affect constricted, mood anxious and depressed. Thoughts linear, logical, no signs of hallucinations or delusions. Client Response/Progress/Benefit: []Pt responded well to session AEB taking notes and providing input and examples throughout. Group discussed the different categories of coping skills which included distraction, emotional release, grounding, self-love, and thought challenging. Pt created a coping skill menu identifying various skills to try in each category. Pt?s coping skill menu included: time with pets, labeling feelings, exercise, dating ?myself? and setting boundaries, and looking at the evidence. Appeared to benefit from increasing repertoire of healthy coping skills. Pt is demonstrating progress in his increased engagement, but pt continues to struggle with mood instability that is often triggered by external situations. Pt will continue IOP tx to prevent decompensation, increase internal coping skills, and reduce negative thinking patterns. Narrative Note: []
--- NOTE | 2022-02-24 11:15 | BH.MDN_ITS ---
Multi-Disciplinary Note - Note 30-min Individual Time Started:: 09:19 Date: 02/24/22 Purpose of session/treatment goals addressed:: Purpose of session was to review treatment progress and discuss current stressors impacting mental health sx management. Additional purpose was to provide psychoeducation on client diagnosis of Borderline Personality Disorder. Eye Contact:: Good - tearful throughout Motor Activity:: Appropriate Appearance:: Casual Speech:: Appropriate Mood:: Dysthymic Affect:: Full Thoughts:: Linear, Logical, No evidence of hallucinations/delusions noted Staff Interventions:: thought challenging, psychoeducation on: - Borderline pers onality disorder and common diagnosis criteria, strengths perspective, goal setting Client Response:: Client responded well to session, open to meeting with therapist. Client shared he struggled with getting to group this morning as he had a difficult weekend and could feel depressive symptoms beginning to flare up. Expressed wanting to call and make an excuse as to why he could not make it and remain in bed instead. Client proudly shared using opposite action and positive self-talk to motivate him to attend group this morning. Went on to discuss stressors occurring over the weekend which included two friends canceling plans on him unexpectedly. Client reports ruminating on this and feeling as though this meant he is ?not worth it? to be friends with. Expressed struggling with self-worth much of his life and often feels he values other?s opinions of him over his own. Client connected to discussion on negative core beliefs and how they can impact relationships with self and others. Went on to indicate struggling with a need for external validation and has feared abandonment by others much of his life which has led him to experience relationship issues as a result. Shared previously researching his mental health sx and believes he may fit the Borderline Personality Disorder dx. Therapist normalized client emotions surrounding his disappointment about plans being cancelled and spent time providing psychoeducation on borderline personality disorder. Client expressed connecting with many of the potential risk factors including family and trauma hx. Reviewed with client several of the common criteria. Client described experiences with difficulties maintaining relationships, intense emotions, and history of self-harming behaviors. Client and therapist further processed how this has impacted his life and sense of self-worth. He was provided with an assessment to complete for homework to best identify which additional characteristics he connects with most and how these have impacted his mental health and relationships. Discussed impacts on relationship with self and ability to maintain consistent self-care as well. Risks/Concerns:: None noted. Pt denies any SI/HI plan or intent as of this date, 02/24/22 Progress Toward Goals/Plan:: Some progress noted as pt reports improved use of calming and thought challenge skills when feeling emotionally overwhelmed. Client continues to report difficulties in managing his interpersonal relationships, often related to poor communication and client struggles with distorted thinking patterns regarding others intentions or beliefs about client. Noted others canceling plans led to client struggling with increased isolation and negative thinking the past three days as a result. Client recommended continued IOP tx to further work on improving mood stability, increase healthy communication skills, as well as improve ability to function at baseline. Time Stopped:: 09:55
--- NOTE | 2022-02-25 08:55 | BH.SGPN.GN ---
Behaviors/Verbalizations/Mental Status: []Eye contact good, casually dressed, motor activity appropriate, speech normal rate and tone, mood euthymic and anxious, congruent affect, thoughts linear and intact, no evidence of delusions or hallucinations. Reviewed pt's symptom tracker, denies suicidal ideation, plan, or intent as of this date 02/25/22. Client Response/Progress/Benefit: []Pt responded well to session, attentive and providing supportive feedback at times throughout. Pt reports feeling exhausted this morning and shared that his two daughters have been struggling with sleep at night. Shared struggling with feeling more down as a result but has been taking steps to challenge his negative thoughts. Shared using an jc to track his mood and mental health more regularly as well. Pt appeared to benefit from group support and encouragement. Recommended continued IOP tx to continue to improve communication skills, reduce negative thinking, and further improve mood stability. Narrative Note: []
--- NOTE | 2022-02-25 10:00 | BH.SGPN.GN ---
Behaviors/Verbalizations/Mental Status: []Pt alert and oriented, neatly dressed and groomed. Eye contact good. Motor activity appropriate. Speech within normal limits. Affect congruent, mood euthymic. Thoughts linear, logical, no signs of hallucinations or delusions. Client Response/Progress/Benefit: []Pt responded well to session AEB sharing when prompted and listening attentively to others. Pt participated in group discussion defining boundaries and why having healthy boundaries is important. Pt shared he struggles with setting boundaries and not personalizing other people?s boundaries with him. Pt appeared to connect to psychoeducation on types of boundaries, including physical, emotional, and intellectual. Pt listened attentively and nodding throughout discussion in which group members shared personal examples of different types of boundaries. Pt appeared to benefit from increased knowledge of the types of boundaries and increased self-awareness of personal boundaries. Will continue IOP tx prevent decompensation, improve impulse control, and reduce negative thinking patterns. Narrative Note: []
--- NOTE | 2022-02-25 11:05 | BH.SGPN.GN ---
Behaviors/Verbalizations/Mental Status: [] Client alert and oriented, casually dressed and appropriately groomed. Eye contact fair. Motor activity normal. Speech within normal limits. Affect constricted, mood dysthymic. Thoughts linear and intact. no signs of delusions or hallucinations. Client Response/Progress/Benefit: [] Client responded well to session AEB listening attentively to peers, providing input when promoted, as well as taking notes throughout. Group discussed the different boundary setting styles which included rigid, porous, and flexible. Participated well in small group discussion identifying the pros and cons of each boundary setting style. Client stated he most often has porous boundaries which often leads to his own needs not being met. As a group discussed various strategies to set boundaries. Seemed to benefit from increased awareness of how different boundary styles can impact mental health Client will continue IOP tx to increase ability to regulate emotions, challenge negative thoughts, and increase application of learned skills.
--- NOTE | 2022-02-27 10:13 | BH.SGPN.GN ---
Behaviors/Verbalizations/Mental Status: []Client alert and oriented, casually dressed and groomed. Eye contact fair to good. Motor activity WNL. Speech appropriate rate/tone. Affect congruent, mood depressed and anxious. Thoughts linear, logical, no signs of hallucinations or delusions.?? Client Response/Progress/Benefit: []Pt responded well to session, provided input and supportive feedback throughout. Pt participated in group discussion regarding mental health benefits of change. Noted that change can result in improved relationship with oneself. Pt identified three small personal changes to improve their mental health as: improving self-talk, reducing rumination, and being in the present moment more often. Identified current barriers keeping pt from making those changes to be negative self-talk, fear of ?feeling?, and poor time management. Pt appeared to benefit from gaining awareness of personal changes that would improve mental health and the barriers keeping client stuck. Progress noted in pt level of insight regarding current barriers impacting mental health change and reports of increased self-care. Pt to continue IOP tx to further increase healthy coping skills, improve mood stability, and maintain current gains.? Narrative Note: []
--- NOTE | 2022-02-27 11:14 | BH.SGPN.GN ---
Behaviors/Verbalizations/Mental Status: []Client alert and oriented, casually dressed and groomed. Eye contact good. Motor activity appropriate. Speech within normal limits. Affect congruent, mood anxious and dysthymic. Thoughts linear, logical, no signs of hallucinations or delusions. Client Response/Progress/Benefit: []Pt responded well to session, participating in activity, and providing input throughout. Did well to process the activity and identify how skills used in accomplishing the task related to making healthy changes in one?s own life. Pt selected one change they would like to make and created a SMART goal to help make this change. Shared wanting to work on reducing negative self-talk. Discussed that this change would help client reduce depression and feel more confident and hopeful. Client?s goal was to start reaching out to supports and have then help pt reframe negative thoughts when recognizing pt using them. Client benefited from working with group to identify strategies to overcome barriers to change and create a plan for implementing one small change promoting personal growth. Client recommended to continue IOP tx to improve interpersonal relationships, further stabilize moods, as well as prevent decompensation. Narrative Note: []
--- NOTE | 2022-03-02 09:05 | BH.SGPN.GN ---
Behaviors/Verbalizations/Mental Status: [] Client alert and oriented, casually dressed and groomed. Eye contact normal. Motor activity appropriate. Speech normal. Affect congruent, mood euthymic. Thoughts linear, logical, no signs of hallucinations or delusions. Reviewed client?s symptom tracker, no risk for suicidal ideation, plan, or intent as of 03/02/22 Client Response/Progress/Benefit: [] Client responded well to group by actively participating throughout group. Reported that his emotion today was hopeful. Client shared stressor of being physically in pain and coping with it. Client indicated that overall he felt he has made some progress towards his MH goals with indicating he spent increased time with his kids and had a stress free weekend and make a change to get up earlier in the mornings to start his day off more positive. Client seemed to benefit from reflecting on the positives that come out of changes he has made. .He will continue IOP tx to increase coping skills, reduce irritability, and increase overall functioning. Narrative Note: []
--- NOTE | 2022-03-02 10:10 | BH.SGPN.GN ---
Behaviors/Verbalizations/Mental Status: [] Client alert and oriented, casually dressed and groomed. Eye contact good. Motor activity appropriate. Speech within normal limits. Affect congruent, mood euthymic. Thoughts linear, logical, no signs of hallucinations or delusions. Client Response/Progress/Benefit: [] Client responded well to session, attentive and providing input throughout. Participated in discussion of things that can keep people feeling trapped or stuck in life including; avoidance, unhealthy coping, isolation, inconsistent boundaries, and surrounding self with toxic people. Group discussed the connection between thoughts, emotions, and behaviors as well as how negative thinking can keep a person stuck. Client attentive during psychoeducation on maintenance cycles. Client able to identify negative thoughts that have kept client stuck which included ? I don't deserve better and there is someone always better than me. Client identified these thoughts lead him to isolate. Appeared to benefit from gaining awareness of how negative thoughts reinforce mental health symptoms and keep people stuck. Will continue IOP tx to prevent decompensation, increase anxiety management skills, and increase overall functioning. Narrative Note: []
--- NOTE | 2022-03-02 11:10 | BH.SGPN.GN ---
Behaviors/Verbalizations/Mental Status: [] Client alert and oriented, casually dressed and groomed. Eye contact good. Motor activity appropriate. Speech within normal limits. Affect congruent, mood euthymic. Thoughts linear, logical, no signs of hallucinations or delusions. Client Response/Progress/Benefit: [] Client responded well to session, contributing to discussion and providing supportive feedback. Client identified a negative thought that has kept him stuck. Client's thought was I don't deserve it. Client reported when he thinks this way, he isolates and becomes angry. Client worked to reframe the thought by finding more rational, realistic ways to look at the thoughts and then processed within group setting. Client reframed the thought to ?I know my kids deserve me as a good father? Client stated he will use positive self-talk to continue challenging negative self-talk. Client appeared to benefit from practicing challenging negative thinking. Client will continue IOP tx to increase overall functioning. Narrative Note: []
--- NOTE | 2022-03-02 14:40 | BH.MDN ---
Multi-Disciplinary Note - Note 45-min Individual Time Started:: 08:30 Date: 03/02/22 Purpose of session/treatment goals addressed:: Purpose of session was to process BPD workbook homework from prior session. Another purpose was to address client externalization and impacts on sense of self-worth, as well as introduce dialectical thinking. Set small self-care goal for week. Eye Contact:: Good Motor Activity:: Appropriate Appearance:: Casual Speech:: Appropriate Mood:: Anxious, Depressed Affect:: Congruent Thoughts:: Linear, Logical, No evidence of hallucinations/delusions noted Staff Interventions:: thought challenging, psychoeducation on: - Dialectical thinking, BPD relationship cycle, CBT techniques, strengths perspective, goal setting Client Response:: Client receptive of session, open to meeting with therapist. Shared he had an ?alright? weekend but struggled with negative thinking and personalization surrounding an interaction with his best friend. Client discussed having what he thought was a constructive conversation with this friend earlier in the week about ways to improve the relationship as it has recently been strained. However, went on to share becoming upset when this same friend made plans to spend time with his instead of him. Shared he experienced anger and intrusive thoughts that this friend does not care, that he isn?t worthy of being loved, and she was intentionally trying to upset him. Client indicated ruminating on this for much of the day which resulted in confronting his friend. Expressed ultimately realizing that she had not intentionally tried to upset him and they were able to work through the misunderstanding; however, he continued to struggle with feeling hurt and worthless. Client connected with common negative core beliefs associated with BPD and how these beliefs reinforce the BPD relationship cycle. Noted that he often pushes people away, lashes out, or engages in self-deprecation when feeling others are not reassuring him and his need to feel wanted or loved. Able to provide insight regarding relying on external reassurance to feel positive about himself and cited a need for his supports to express praise towards him to be secure in the relationship. Able to identify unhealthy impacts the need for external validation has had on his relationships and self-confidence. Connected with the importance of developing a healthy relationship with himself to begin to improve his relationships and reduce the need for external validation. Identified a small goal to make time each evening to practice positive self-talk and self-care. Risks/Concerns:: None noted. Pt denies any SI/HI plan or intent as of this date, 03/02/22 Progress Toward Goals/Plan:: Progress limited. Pt reports gaining insight from groups and individual sessions and reports actively working to apply coping skills learned. However, pt mood is strongly connected to his relationships and external stimulus. Pt able to recognize difficulties in managing his emotions, increased negative self-talk, and more intense sx when experiencing a stressor regarding his relationships. Pt specifically struggles with coping with feeling ignored or rejected and has experienced several setbacks involving both real and perceived rejects over the past two weeks. Pt however willing to continue working to better identify and address these sx through increasing awareness, improve use of thought challenging, and regularly engaging in self-care to improve relationship with himself. Reports increased hope since gaining insight into his BPD dx and is interested in further exploring this. Recommended continued IOP tx to further work on improving self-confidence, promote healthy interpersonal communication skills, as well as improve ability to function at baseline. Time Stopped:: 09:10
--- NOTE | 2022-03-09 08:57 | BH.MTP_ITS ---
Treatment Plan Review Date of Admission:: 02/10/22 Date of Treatment Plan Review:: 03/09/22 Admitting Diagnoses:: 1. Bipolar 2 disorder (most recent episode depressed). 2. Generalized anxiety disorder. 3. PTSD Current Diagnoses:: 1. Bipolar 2 disorder (most recent episode depressed). 2. Generalized anxiety disorder. 3. PTSD Patient's Response to Treatment:: Pt has struggled with calling off ill on a few occasions, but overall consistently attends IOP sessions he has signed up for. Pt often provides feedback and ideas to group sessions. Struggles with utilization of skills in everyday life. Status of Current Problems and Symptoms: Ongoing problems. Pt's marriage and difficulties with feeling rejected when close friends cancel plans continues to be significant source of stress. Pt often attributes problems and symptom to things that are outside his control and struggles to identify what he can do to improve his situation. Pt has shown limited progress as a result of difficulties applying distress tolerance skills in the moment and often citing external forces as the sole means for his mental health struggles. Due to this, pt has seen an increase in DSM-5 scores since admission, as at the time of admission pt has just discharged from inpatient hospitalization and was removed from external stressors for a period of time. Pt does however self-report improved hope and can identify healthy distress tolerance skills, though struggles with application. Problem #1 Problem Name:: Depression, SI, mood stability Status of Goals:: obj 1. partially met ongoing work encouraged. Pt is able to identify healthy coping skills like opposite action, grounding skills, affirmations, and doing activities that he enjoys. However, he struggles with consistently using skills. Pt's focus on waiting for an external situation to improve his mood or someone else to provide reassurance has been the primary barrier to this goal. Per DSM 5 score pt's depression has not decreased. obj 2 - partially met, ongoing work encouraged. Pt has learned about negative core beliefs and cognitive distortions. He can identify negative thoughts which impact his mood and does well in session to challenge and replace these. However, he struggles significantly with negative thoughts when supports are not available or disappoint him, which directly impacts his mood. Pt reports difficulties challenging thoughts outside of the tx environment and shares often feeding further into distortions as a result. Team Recommendations:: Team recommends continue current goal and objective. Continued use of motivational interviewing techniques to help pt realize importance of changing the way he manages external stressor and sara with disappointment. Help pt identify what he can do to improve his mood and situation in the moment. Problem #2 Problem Name:: Anxiety Status of Goals:: obj 1 - partially met. Pt is able to identify triggers for anxiety as well as calming skills like belly breathing, grounding and engaging his 5 senses. Pt struggles with using these skills outside treatment envi ronment. obj 2 ? partially met. Patient can identify specific distortions impacting and maintaining anxiety, however struggles with challenging and replacing these in the moment. Team Recommendations:: Team recommends continue current goal and objective. Continue to review healthy calming skills and help pt identify how to increase follow through of practicing skills every day.
--- NOTE | 2022-03-09 10:10 | BH.SGPN.GN ---
Behaviors/Verbalizations/Mental Status: []Client alert and oriented, casually dressed and appropriately groomed. Eye contact fair. Motor activity appropriate. Speech within normal limits. Affect congruent, mood euthymic. Thoughts linear, logical, no signs of hallucinations or delusions. Client Response/Progress/Benefit: [] Client connected with topic of anxiety and participated throughout, providing input and taking notes. Attentive during psychoeducation on different anxiety disorders and participated throughout interactive discussion defining anxiety and identifying cognitive and physiological symptoms of anxiety. Common cognitive symptoms identified by group included: ?what if thoughts?, all or nothing thinking, and predicting the future type thoughts. Physiological symptoms reported by patient included: leg twitch, heavy chest, low frustration tolerance, GI issues, and difficulty sitting still. Benefited from increased awareness and insight on anxiety and its impact. Will continue IOP tx to increase consistent use of healthy coping, challenge distorted thoughts and prevent decompensation.
--- NOTE | 2022-03-09 12:02 | BH.MDN ---
Multi-Disciplinary Note - Note 60-min Individual Time Started:: 11:32 Date: 03/09/22 Purpose of session/treatment goals addressed:: Risk assessment and safety planning. Pt's sx tracker indicated increased SI and pt indicated self-harming. Eye Contact:: Good Motor Activity:: Appropriate, Restless Appearance:: Casual Speech:: Appropriate Mood:: Anxious, Depressed Affect:: Congruent Thoughts:: Linear, Logical, No evidence of hallucinations/delusions noted Staff Interventions:: thought challenging, motivational interviewing, psychoeducation on: - distress tolerance skills, taught coping skills - reviewed several self-soothing alternatives to self-harming Client Response:: Met with pt to discuss elevated scores on daily sx tracker. Pt reports ?I woke up in a whirlwind? on Wednesday and struggling to manage his negative thinking. Shared that the previous day had been positive and that he had spent time with his family and close friend, but felt completely consumed by his negative thoughts the next morning. Upon further inquiry, pt able to identify the trigger as being home alone all day Wednesday and not hearing back from any of his supports when reaching out. Described feeling isolated and worthless when unable to connect with any supports, stating that he then noticed his thoughts becoming increasingly negative and telling himself things such as ?no one cares about me? and ?I?m worthless?. Disclosed attempting to use some healthy coping skills but ultimately self-harming when feeling the skills were not working as effectively as he had hoped. Reported self-harming to feel a sense of relief and not to end his life. Denies any active SI, plan, or intent and reports he often has passive thoughts of not existing but does not actually want to . Protective factors noted and reports willingness to seek out crisis services should he feel unable to maintain safety at any time. Contracts for safety. Pt connects with a strong need for external validation and support. Indicated he often struggles with finding an internal source of self-worth and only feels good about himself when others express appreciation for him. Able to recognize the impact his reliance on other?s has on ability to maintain stability and cope with when supports are either unavailable or may be the source of pt?s stress. Worked with pt to reframe and challenge negative automatic thoughts. Receptive of discussion on healthy distress tolerance skills and pt identified specific skills he is willing to begin practicing and utilize instead of self-harming. Pt identified plans to spend time with his children this evening and practice deep-breathing. Risks/Concerns:: refer above. Denies suicidal ideations, plan, or intent. No hx of attempts. Reports passive thoughts of and feeling ?damaged? or like a burden led to superficial cutting last evening. Hx of self-injurious behaviors. While cutting he reports thoughts of wanting to just feel something different. Denies any active ideation, plan, or intent. Suicidal ideation with intent lasted only moments. Motivated. Protective factors kept him from harming self. Contract for safety. Reports feeling better after speaking with fellow group participants. Future oriented. Protective factors noted Progress Toward Goals/Plan:: No progress, regression noted. Pt reports recently engaging in self-harming behaviors when feeling ignored and alone. Shared external stressors are often the cause of increased depression and emotion dysregulation. Noted that he has been struggling with feeling unwanted and like a burden. Struggling to challenge these thoughts and notes low self-worth. Struggled to identify any internal healthy coping skills he can use. Receptive of discussion reviewing several distress tolerance skills. Denies suicidal ideation and reports passive thoughts of not wanting to continue to feel the way he does but not actually wanting to . Denies engaging in any self-care activities as previously discussed in prior sessions. Plan is to continue in IOP to maintain safety, prevent decompensation, and increase healthy coping. Willing to create a safety plan for the evening
--- NOTE | 2022-03-11 09:05 | BH.SGPN.GN ---
Behaviors/Verbalizations/Mental Status: []Pt alert and oriented, casually dressed and groomed. Eye contact good. Motor activity appropriate. Speech within normal limits. Affect constricted, mood dysthymic. Thoughts linear, logical, no signs of hallucinations or delusions. Reviewed pt?s symptom tracker, no risk for suicidal ideation, plan, or intent as of 03/11/22 Client Response/Progress/Benefit: [] Pt responded well to session, attentive and providing support to peers. Pt reports feeling drained this morning as pt is feeling frustrated with himself and self-critical. Pt shared he has been trying to use healthy coping skills and he put up a positive affirmation on his mirror. Pt stated the positive affirmations worked for one day, but the next day, pt felt frustrated and ripped it down. Therapist reminded pt to practice self-compassion while working to change thinking patterns. Pt appeared to benefit from this reminder. Pt will continue IOP tx to prevent decompensation, improve overall functioning, and increase self-compassion. Narrative Note: []
--- NOTE | 2022-03-11 10:10 | BH.SGPN.GN ---
Behaviors/Verbalizations/Mental Status: [] Eye contact is good. Motor activity is appropriate. Appearance is casual. Speech is Appropriate. Mood is depressed. Affect is flat. Thoughts are linear and logical. No evidence of psychosis. Client Response/Progress/Benefit: [] Pt participated at times during the group discussions. Attentive during psychoeducation AEB note-taking. Participated in interactive discussion amongst peers on the definition and examples of crisis. Engaged in conversations as peers identified unhealthy responses to crisis which included; substance use, avoidance, isolation, sleeping, risky behaviors, retail therapy, over-eating, etc. Pt identified her devin signs to crisis which included isolation, foggy head, and pushing people away. Benefited from increased of crisis and personal warning signs. Will continue in IOP to prevent decompensation/re-admission, stabilize mood, and increase healthy coping. Narrative Note: []
--- NOTE | 2022-03-11 11:10 | BH.SGPN.GN ---
Behaviors/Verbalizations/Mental Status: []Pt alert and oriented, casually dressed and appropriately groomed. Eye contact good. Motor activity appropriate. Speech within normal limits. Affect constricted, mood anxious. Thoughts linear, logical, no signs of hallucinations or delusions. Client Response/Progress/Benefit: []Pt responded well to session as evidenced by pt listening attentively to others and providing strategies during discussion.? Pt identified personal warning signs for crisis and gained further awareness of earliest warning signs. Pt created a crisis action plan to help better manage warning signs for crisis. Pt able to create action plan for warning sign anger outbursts. Pt's action plan included: mindfulness, grounding tools, taking a step back, and communicating to supports about feelings. Pt appeared to benefit from creating a crisis action plan and increasing self-awareness. Pt will continue IOP tx to improve emotion regulation, challenge negative thoughts and prevent decompensation.
--- NOTE | 2022-03-13 09:05 | BH.SGPN.GN ---
Behaviors/Verbalizations/Mental Status: []Eye contact fair, casually dressed, motor activity appropriate, speech normal rate and tone, mood anxious and depressed, constricted affect, thoughts linear and intact, no evidence of delusions or hallucinations. Reviewed pt's symptom tracker, suicidal ideation within pt baseline, denies any current plan, or intent as of this date 03/13/22. Client Response/Progress/Benefit: []Pt responded well to session, attentive and providing supportive feedback at times throughout. Pt reports feeling ?flustered this morning. Identified mental health ?wins? as using opposite action to attend group this morning despite wanting to ?stay home and suffer?. Shared additional win as making plans for self-care with a support this afternoon to continue to improve his mood and prevent from engaging in unhealthy coping behaviors. Pt notes this as progress as he often refers to unhealthy means of emotional release. Shared his mood is his current stressor as well. Receptive of and appearing to benefit from supportive feedback and suggestions from the group. Pt to continue IOP tx to improve healthy coping skills, reduce unhealthy means of coping, and further improve mood stability. Narrative Note: []
--- NOTE | 2022-03-13 10:20 | BH.SGPN.GN ---
Behaviors/Verbalizations/Mental Status: []Pt alert and oriented, casually dressed and groomed. Eye contact good. Motor activity appropriate. Speech within normal limits. Affect constricted, mood dysthymic. Thoughts linear, logical, no signs of hallucinations or delusions. Client Response/Progress/Benefit: []Pt was an active?participant in group discussion. Group worked together to identify benefits of healthy relationships which include; improves mental health, encouragement, motivation, accountability, validation, connection, and personal growth. Group identified factors that lead to unhealthy relationships which included; co-dependence, gaslighting, not addressing issues, name-calling, and not setting boundaries.?Pt?s personal factors were fear of change, viewing stability as ?boring,? and ??being used to chaos.? Actively participated in group experiential activity and expressed ideas to group. Benefited from increased insight and awareness of benefits of healthy relationships and factors that contribute to unhealthy relationships. Will continue IOP tx to prevent decompensation, improve distress tolerance skills, and gain self-worth. Narrative Note: []
--- NOTE | 2022-03-16 08:42 | BH.MDN ---
Multi-Disciplinary Note - Note 60-min Individual Time Started:: 12:10 Date: 03/16/22 Purpose of session/treatment goals addressed:: To address current stressors, recent crisis assessment through the ER over weekend, increased SI, and to create a safety plan. Eye Contact:: Fair - tearful throughout Motor Activity:: Restless Appearance:: Casual Speech:: Appropriate Mood:: Depressed Affect:: Congruent Thoughts:: Linear, Logical, Other - distorted thoughts of self, No evidence of hallucinations/delusions noted Staff Interventions:: thought challenging, strengths perspective, completed risk assessment / safety planning - reviewed specific skills pt can use to maintain safety, other - Called pt's and reviewed, in agreement and has already secured all lethal means following prior ER visit. Client Response:: Pt responded well to session, open to meeting with therapist. Pt reports this weekend was difficult and that he was severely depressed for much of it. Pt stated he had a long week and was continue to stress about money which had him in a bad mood and then two of his friends had blown him off when they were supposed to hangout. Pt described feeling hurt and angry as a result, and began hearing his mother?s voice in his head telling him to ?just kill yourself? and ?you?re worthless?. Expressed trying to use some of the distress tolerance skills discussed in prior session but had difficulties focusing and therefore found them to be ineffective. Went on to indicate he had tried to read positive encouragement statements he had said from friends in the past and this only made him angrier. Shared telling himself ?they don?t really care, these are all lies?. Began experiencing worsening SI with vague thoughts of overdosing on his trazodone. Reached out to his who took pt to ER where he met with crisis. Pt reports this was not helpful as he felt they did not understand. Created a safety plan while at ER. States at time of ER visit he did not actually want to but did not know how else to cope. Shared struggling with depressive sx much of the next day and spent most of the day laying on the basement floor crying. Denies attempting to use any healthy skills yesterday. Able to see how this maintained his negative thoughts and depressive sx throughout the day. Pt could identify healthy coping skills such as journaling, talking to support, using dialectical thinking, spending time with his kids, and playing video games. Pt's is able to monitor pt today and pt feels like he can tell her if he is getting worse and needs to go to the ER. Pt is scheduled to return to IOP on Wednesday. Risks/Concerns:: Pt scored higher than baseline today on the daily symptom tracker. Pt admits to having fleeting SI over the weekend with thoughts of overdosing on trazodone which he went to the ER for. Pt reports he did not and does not currently want to but does not know how else to cope. Pt has fleeting SI daily but denies any active plan or intent, no other methods. Pt is sure he can keep himself safe, and is not an imminent threat to self. Pt's has secured all medications and can monitor him today. Progress Toward Goals/Plan:: Pt's problems and symptoms are ongoing and have not changed since admission. Pt's daily symptom tracker was higher for suicidal ideations today than previous sessions. Pt reports his mood shifts based on external triggers, often being disappointed or feeling ignored by supports. Reports his depression remains strong and her depression lasted for hours over the weekend. Pt's symptoms continue to impact his occupational, social, and familial functioning. Will continue IOP tx to prevent decompensation and rehospitalization. Time Stopped:: 13:09
--- NOTE | 2022-03-16 10:20 | BH.SGPN.GN ---
Behaviors/Verbalizations/Mental Status: []Pt alert and oriented, casually dressed and groomed. Eye contact good. Motor activity appropriate. Speech within normal limits. Affect constricted, mood depressed. Thoughts linear, logical, no signs of hallucinations or delusions. Client Response/Progress/Benefit: []Pt responded well to session, contributing to discussion and engaged during the activity. Group identified the benefits of change which included: less stress, healthier wellbeing, and a better future. Worked with the group to identify barriers to change and pt identified personal barriers as not wanting to accept change, fear, and not being ready to move forward. Pt participated along with group in activity where they identified and discussed the emotions related to change. Pt participated in discussion on the change process and personal experiences with implementing change in past. Benefited from increased awareness and understanding of emotions, benefits, and barriers related to change. Will continue IOP tx to increase distress tolerance skills, reduce self-harm, and combat distortions. ?? Narrative Note: []
--- NOTE | 2022-03-17 09:00 | BH.SGPN.GN ---
Behaviors/Verbalizations/Mental Status: []Pt eye contact fair, casually dressed, motor activity appropriate, speech normal rate and tone, mood depressed, flat affect, thoughts linear and intact, no evidence of delusions or hallucinations. Client Response/Progress/Benefit: [] Client respond well to session as evidenced by listening attentively to others and sharing thoughts and feelings. Client reported he has been struggling stating my confidence is in the water. Client stated he was taken to the hospital over the weekend due to having self-harm thoughts. Client reported he had been struggling with negative thoughts and had gotten into an argument with his best friend. Client identified mental health positive as showing up to IOP today. Expressed feeling frustrated this morning. Seemed to benefit from support from peers. Client to continue IOP to increase consistent use of healthy coping skills, challenge distorted thoughts and prevent decompensation.
--- NOTE | 2022-03-17 11:20 | BH.SGPN.GN ---
Behaviors/Verbalizations/Mental Status: []Client alert and oriented, casually dressed and groomed. Eye contact fair to good. Motor activity appropriate. Speech within normal limits. Affect congruent, mood depressed and anxious. Thoughts linear, logical, no signs of hallucinations or delusions. Client Response/Progress/Benefit: []Client responded well to session, attentive AEB participating in activity and providing input in group. Did well to process activity and work with group to relate the strategies used to overcome barriers in the activity to managing change in own life. Client shared a change they would like to make is to ?open up more to supports?. Client stated currently being in the preparation stage. Identified goal to work on to achieve change behavior would be to share what he is learning in group with supports. Appeared to benefit from identifying a small goal to work towards. Client will continue IOP tx to improve mood stability, improve consistent application of healthy coping skills, and improve daily functioning. Narrative Note: []
--- NOTE | 2022-03-18 09:05 | BH.SGPN.GN ---
Behaviors/Verbalizations/Mental Status: [] Eye contact is poor. Motor activity is appropriate. Appearance is casual. Speech is Appropriate. Mood is depressed. Affect is flat. Thoughts are linear and logical. No evidence of psychosis. Reviewed daily check in sheet and pt reports 1/5 for suicidal thoughts and 0/5 for intent. Baseline. Client Response/Progress/Benefit: [] Pt participated when prompted. Attentive. Daily symptom tracker notes 2/5 for anxiety. SI-2. Pt?s check-in was very brief and he did not elaborate. Stated that he cleaned the whole house yesterday however was exhausted. Reports poor sleep (3 hours) due to excessive rumination. Emotion for today is ?pooped?. Limited benefit from group as he appeared disengaged. Will continue in IOP to maintain safety, prevent decompensation/re-admission, and improve functioning to return to work. Narrative Note: []
--- NOTE | 2022-03-18 11:52 | PCM.BH.PN_ITS ---
Progress Note Progress Note: History of Present Illness/Interim History: [] The patient is a 26-year-old male with a history of bipolar 2 disorder, anxiety, PTSD and strong borderline traits who is seen in follow-up at the [facility] behavioral health IOP program. I last saw the patient 3-1/2 weeks ago and at that time no medication changes were made except for him allowing him to increase his trazodone to 150 mg. The patient states that his mood is easily affected and triggered by situational and emotional events. There is still a lot of drama with his emotional triangle with his and is very close female friend. He states that his emotions vary depending on if he is in a stressful or unhappy situation or not. He states that he went to the [facility] emergency room on March 14, 2022 due to urges to commit suicide. He states that he wrote his plan was to write letters and then take an overdose of trazodone but he told his girlfriend about this before he did any letter writing or took any pills and then his girlfriend called his and they decided to bring him to the emergency room. Patient states that lately he has had some decrease in sleep to 4 to 5 hours a night. He had some thoughts of self-harm yesterday but none today yet. The patient discusses many events between his best friend Saul and his that are contributing to his mood instability as he is very reactive mood aguero. He has some trouble with medication compliance. Importance of good sleep hygiene was discussed with him again. He has had a few panic attacks on February 26, 2022 but does not remember what caused them. He denies current suicidal ideation, thoughts of self-harm since yesterday, homicidal ideation, hallucinations or delusions. Current Psychiatric Medications: [] Prozac 20 mg p.o. daily (x6 weeks or 7 now; trazodone 150 mg p.o. nightly Mental Status Examination: [] The patient is a 26-year-old male who appears normal for stated age and is casually dressed and groomed with good hygiene. He is ambulatory with a normal gait and alert and oriented to person place and time. He is cooperative during the interview and has no psychomotor agitation or retardation. Eye contact is good and speech is normal rate and rhythm and fluent with no pressure. Mood is depressed. Affect is mildly constricted. Thought process is goal-directed and organized. Thought content: The patient had recent thoughts of suicidal ideation with a plan to overdose 4 days ago but there is no evidence of suicidal ideation now. There is no evidence of thoughts of self-harm since yesterday. There has been some passive thoughts of are present. There is no evidence of hallucinations, delusions, homicidal ideation or symptoms of carlos a. Reality testing is intact. Impulsivity is high. Judgment is intact but limited. Insight is limited. Diagnoses: [] 1. Bipolar 2 disorder (most recent episode depressed) 2. Borderline personality disorder 3. CARINA 4. PTSD 5. Nicotine and marijuana use disorder 6. Primary support issues Plan: [] The patient will continue the IOP program at [facility] as the structure, support, education and group therapy will hopefully prevent the worsening of the patient's symptoms that might require hospitalization. The patient felt safe during the interview and if he does not feel safe he agrees to let us know or go to the emergency room. Discussed with the patient the need for good sleep hygiene. Discussed with the patient that I would recommend since the trazodone is not working and is not sleeping much we add Seroquel to treat bipolar depression and to help with his decreased sleep. He agrees to this and a prescription is sent in for Seroquel 50 mg p.o. nightly for 2 days and then 100 mg p.o. nightly. I will see the patient in follow-up in 1 week and we may increase the Seroquel at that time depending on how he is tolerating it.
--- NOTE | 2022-03-20 09:05 | BH.SGPN.GN ---
Behaviors/Verbalizations/Mental Status: []Eye contact good, casually dressed, motor activity appropriate, speech normal rate and tone, mood euthymic, congruent affect, thoughts linear and intact, no evidence of delusions or hallucinations. Reviewed pt's symptom tracker pt denies any SI plan, or intent as of this date 03/20/22. Client Response/Progress/Benefit: [] Pt responded well to session, attentive and engaged. Pt reports feeling hopeful this morning as pt is trying to focus on the positives. Pt reflected on some recent moments of carmine he experienced with his daughter and while practicing mindfulness. Pt's mood has improved, but pt continues to struggle with negative thinking and self-talk. Pt shared his stressor is interpersonal relationship issues, but pt is working on managing this in healthier ways. Pt appeared to benefit from reflecting on positives. Pt will continue IOP tx to promote distress tolerance skills, improve self-confidence, and improve work-related functioning. Narrative Note: []
--- NOTE | 2022-03-20 11:10 | BH.SGPN.GN ---
Behaviors/Verbalizations/Mental Status: []Pt alert and oriented, casually dressed and groomed. Eye contact fair. Motor activity appropriate. Speech within normal limits. Affect constricted, mood anxious. Thoughts linear, logical, no signs of hallucinations or delusions. Client Response/Progress/Benefit: []Pt was an active participant in group discussion. Attentive during psychoeducation on the Zones of Change which included the comfort zone, learning zone, and danger zone. Pt along with peers participated in interactive discussion regarding behaviors, thoughts, and feelings associated with each zone. Participated in group activity in which they developed a plan to take action on something they wished to change. Pt chose to take action on decreasing fear of others opinions in which pt identified a SMART goal is every evening he will start writing two positives and one thing he is proud of himself for doing. Identified supports that pt needed as note on self affirmation and alarm reminders. Benefited from increased self-aware of zones of change and developing an action plan. Will continue in IOP to improve emotion regulation, challenge negative thoughts and prevent decompensation.
--- NOTE | 2022-03-23 08:17 | BH.MDN ---
Multi-Disciplinary Note - Note 45-min Individual Time Started:: 11:28 Date: 03/23/22 Purpose of session/treatment goals addressed:: Met with pt to review progress and outcome scores. Pt is set to discharge from [facility] Wednesday. Eye Contact:: Good Motor Activity:: Appropriate Appearance:: Casual Speech:: Appropriate Mood:: Euthymic, Anxious Affect:: Congruent Thoughts:: Linear, Logical, No evidence of hallucinations/delusions noted Staff Interventions:: thought challenging, motivational interviewing, discharge planning, strengths perspective, reviewed DSM-5 Client Response:: Pt was open to session and responded well. Used the session to review progress on treatment plan goals, review outcome scores, and finalize aftercare. Reviewed internal and external skills to utilize when feeling overwhelmed to prevent pt reaching crisis and reduce self-harming urges. Pt also able to identify triggers for negative thought messages which can lead to overwhelming depression and skills to manage these thoughts (re-framing, distraction, challenging, and grounding skills). Pt has been using a mental health mood management jc on his tablet daily and recently trying to keep an accomplishment journal, as well as identifying his mental health wins for the day which has helped his depression. We reviewed his strategies to manage intrusive self-deprecating thoughts and feelings of worthlessness when external supports cancel plans or disappoint him (i.e. aguero mind). He was also able to identify several self-care skills for beginning to improve personal relationship with himself. Since starting [facility] pt reports significant progress stating ?I feel like I?ve learned skills to better manage the ?upside down? (depression) rather than be consumed by it?. This past week he has begun to play video games and watch movies he enjoys again which pt reports not doing for several months prior to tx. Plans to return to work full-time next week. He reports mild anxiety related to upcoming return to work, however feels able to manage. Risks/Concerns:: No risks or concerns noted. Denies self-harming in the past 5 days. Denies any SI, plan, or intent as of this date. Progress Toward Goals/Plan:: Progress noted per pt report. According to DSM-5 outcomes pt had an overall 33% reduction in symptoms since mid-point review. Pt had a 50% reduction in the depression domain, 50% reduction in the anger domain, a 100% reduction in thoughts of self-harming, and a 40% reduction in personality functioning domains. Pt has returned to activities he enjoys, plans to return to work Wednesday, and reports improved functioning. Has completed all treatment plan goals. Pt will be discharged from [facility] level of care, referred to DBT group through [facility] where he is connected with outpatient counseling. Intake appointment with psychiatry through [facility] scheduled for , 03/26/22. Time Stopped:: 12:00
--- NOTE | 2022-03-23 09:05 | BH.SGPN.GN ---
Behaviors/Verbalizations/Mental Status: [] Eye contact is good. Motor activity is appropriate. Appearance is casual. Speech is Appropriate. Mood is euthymic. Affect is full. Thoughts are linear and logical. No evidence of psychosis. Reviewed daily check in sheet and no reports of suicidal ideations or intent Client Response/Progress/Benefit: [] Pt participated at times during the group discussions. Attentive. Mental health wins include ?clearing my life of toxic people?. Set up boundaries this week. Motivated and hopeful today which is significant change from last week. ?Today is the first day of the rest of my life?. He reports several realizations and epiphanies this past weekend regarding his negative thoughts and mental health. Increase motivation to make healthy changes for ?myself and daughters?. ?I?m feeling better about myself. ?Benefited from group support, encouragement, and feedback. Will continue in IOP to maintain safety, prevent decompensation/re-admission, and to improver functioning to return to work. Narrative Note: []
== END 2022-03-23 23:59 ==
LOC: BHIOP 09:02
PROVIDERS: Visit Provider Psychiatry & Neurology Psychiatry
DX: F31.81 Bipolar II disorder (principal); F60.3 Borderline personality disorder; F41.1 Generalized anxiety disorder; F43.10 Post-traumatic stress disorder, unspecified; Z72.0 Tobacco use; F12.90 Cannabis use, unspecified, uncomplicated
CPT/HCPCS: S9480; 90832; 90834; 90837; 90853

== ENCOUNTER 2022-03-14 18:25 | Emergency (ER) | payer OTHER, MEDICAID, SELFPAY ==
[2022-03-14 18:26] VITALS: BP 147/85; PULSE 79; RESP 16; TEMP 36.8; O2SAT 98; BMI 22.3
--- NOTE | 2022-03-14 18:54 | EDS_ITS ---
HPI HPI - Psych History of Present Illness Chief Complaint: Suicidal Informant: patient and spouse/S.O. Narrative Narrative: Presenting increasing suicidal ideations for the past 2 days. Plans of overdosing with his trazodone. Started cutting today. Tetanus in last 2 years. No anticoagulation medicines. History of depression. He is followed by 180. Has not seen in over a month. He is in treatment with [facility] 3 times a week last visit was yesterday. He tried to get the counselor side to talk however did not get to it. There is been increasing stress at work and stating his boss is not pain in his money. His confirms this. He was here a month ago due to relationship issues transferred up to [place]. He states they are working out their issues. There is 2 children. Report with [facility] discussing possibility of bipolar disorder. There is no changes of medications with Prozac or trazodone from [place] due to him not being compliant. Mr. Leavitt used twice a day no alcohol. Denies homicidal ideations. Denies visual or auditory hallucinations. He does feel that he needs to be admitted again therefore came here. Prior similar symptoms: Yes PFSH PFS Medical History Bipolar 2 disorder Cannabis use disorder Generalized anxiety disorder Nicotine use disorder PTSD (post-traumatic stress disorder) Home Medications fluoxetine 20 mg capsule (Prozac) 20 mg PO DAILY 01/28/22 [History Last Taken Unknown] trazodone 50 mg tablet 100 mg PO QHS 01/28/22 [History Last Taken Unknown] Allergy/AdvReac Type Severity Reaction Status Date / Time No Known Allergies Allergy Verified 03/14/22 18:25 Social History Smoking Status: Never smoker substance use type: marijuana ROS ROS ED Constitutional Constitutional ED: Denies chills, fever(s) or sweats Eyes Eyes: Denies change in vision ENT ENT ED: Denies dysphagia or sore throat Cardiovascular Cardiovascular: Denies chest pain, leg edema, palpitations or racing heartbeat Respiratory/Chest Respiratory/Chest: Denies cough, dyspnea or dyspnea on exertion Gastrointestinal Gastrointestinal: Denies abdominal pain, diarrhea, nausea or vomiting Genitourinary Genitourinary ED: Denies dysuria, hematuria or urinary frequency Musculoskeletal Musculoskeletal: Denies back pain, extremity pain or neck pain Integumentary Denies rash or wounds Neurologic Neurologic: Denies headache(s), paresthesias or weakness Psychiatric Psychiatric: Reports depression, suicidal ideation and suicidal thoughts EXAM Physical Exam Const Vital Signs: 03/14/22 18:26 Temperature 98.2 F Temperature Source Temporal Pulse Rate 79 Respiratory Rate 16 Blood Pressure 147/85 H Blood Pressure Mean 105 Pulse Ox 98 Oxygen Delivery Method Room Air Positive well nourished and well developed General Appearance ED: well developed and NAD HEENT Reports moist mucous membranes normocephalic and atraumatic Eyes PERRL, EOMs intact bilaterally and conjunctivae normal General Eye ED: Yes normal appearance of both eyes Neck no lymphadenopathy and supple General: Negative for tenderness Chest Wall Chest: Negative for tenderness Resp normal respiratory effort and normal air movement Effort and Inspection: symmetric chest movement; Negative for respiratory distress Cardio regular rate, regular rhythm and no murmurs Peripheral Pulses: pulses 2+ throughout GI normal to inspection, nondistended, normoactive bowel sounds and non-tender Palpation: Negative for guarding or rebound tenderness present Back/Spine no CVA tenderness and no thoracic nor lumbar tenderness Extremity normal to inspection General Extremety ED: Negative for edema or tenderness General Extremity: Negative for edema Neuro oriented x3 and no sensory deficits noted Sensorium / Orientation: awake and alert Psych Psych Narrative: Cooperative slight flat affect, admits to suicidal ideations with depression. Admits to the plan. Skin Skin Narrative: Left forearm superficial abrasions volar aspect distal forearm. No active bleeding. MDM MDM MDM Narrative Medical decision making narrative: Patient presenting requesting admission. Depression with suicidal ideations with a plan. Has been cooperative. Medical clearance labs all stable tox screen with THC for which he admits to. He is medically cleared. We will have crisis evaluate the patient for disposition. Crisis evaluated patient feels he is clinically stable. Safety contract. Spouse will monitor drugs and denies. He is followed closely by [facility]. Crisis will will send a message of [facility] for partial hospitalization program. They are in agreements with this. He will follow-up as an outpatient with return precautions. Lab Data Attestation: I reviewed the patient's lab results. Labs: Laboratory Results - last 24 hr 03/14/22 03/14/22 03/14/22 19:00 19:00 19:00 WBC 7.0 RBC 5.49 Hgb 16.2 Hct 48.7 MCV 88.7 MCH 29.5 MCHC 33.3 RDW Std Deviation 41.0 RDW Coeff of Stan 12.5 Plt Count 260 MPV 9.5 Immature Gran % (Auto) 0.600 Neut % (Auto) 71.4 H Lymph % (Auto) 19.3 [place] % (Auto) 7.9 Eos % (Auto) 0.4 Baso % (Auto) 0.4 Absolute Neuts (auto) 5.0 Absolute Lymphs (auto) 1.35 Nucleated RBC % 0 Sodium 142 Potassium 3.6 Chloride 110 H Carbon Dioxide 23.0 Anion Gap 9 BUN 13 Creatinine 0.94 Estim Creat Clear Calc 120.10 Est GFR (MDRD) Af Amer 123 Est GFR (MDRD) Non-Af 102 BUN/Creatinine Ratio 13.9 Glucose 96 Calcium 9.2 Urine Opiates Screen Urine Methadone Screen Ur Barbiturates Screen Ur Phencyclidine Scrn Ur Amphetamines Screen MDMA (Ecstasy) Screen U Benzodiazepines Scrn Urine Cocaine Screen U Cannabinoids Screen Ur Drug Screen Comment Ethyl Alcohol < 3.0 03/14/22 20:15 WBC RBC Hgb Hct MCV MCH MCHC RDW Std Deviation RDW Coeff of Stan Plt Count MPV Immature Gran % (Auto) Neut % (Auto) Lymph % (Auto) [place] % (Auto) Eos % (Auto) Baso % (Auto) Absolute Neuts (auto) Absolute Lymphs (auto) Nucleated RBC % Sodium Potassium Chloride Carbon Dioxide Anion Gap BUN Creatinine Estim Creat Clear Calc Est GFR (MDRD) Af Amer Est GFR (MDRD) Non-Af BUN/Creatinine Ratio Glucose Calcium Urine Opiates Screen NEGATIVE Urine Methadone Screen NEGATIVE Ur Barbiturates Screen NEGATIVE Ur Phencyclidine Scrn NEGATIVE Ur Amphetamines Screen NEGATIVE MDMA (Ecstasy) Screen NEGATIVE U Benzodiazepines Scrn NEGATIVE Urine Cocaine Screen NEGATIVE U Cannabinoids Screen POSITIVE H Ur Drug Screen Comment Ethyl Alcohol Discharge Plan Triage Chief Complaint: Suicidal ED Provider: Kaushik Ramirez Dx/Rx/DC Orders Clinical Impression: Depression with suicidal ideation, Tetrahydrocannabinol (THC) dependence Instructions: Depression: Tips to Help Yourself, CONTRACT, No Harm Prescriptions: No Action trazodone 50 mg Tablet 100 mg PO QHS fluoxetine [Prozac] 20 mg Capsule 20 mg PO DAILY Primary Care Provider: Care Physician,Yessica Primary Referrals: Care Physician,No Primary [Primary Care Provider] - Activity Restrictions/Additional Instructions: Follow-up as discussed with crisis with your IOP. Safety plan discussed. Return if any worsening symptoms Disposition Disposition: Home, Self Care Discharge Date/Time: 03/14/22 22:38
[2022-03-14 19:17] LABS: Absolute Lymphocyte Count 1.35 X10^3/uL (0.83-4.51); Basophil# 0.03 X10^3/uL; Basophil% 0.4 % (0-1); Eosinophil# 0.03 X10^3/uL; Eosinophils% 0.4 % (0-5); Hematocrit 48.7 % (40-54); Hemoglobin 16.2 g/dL (13.0-16.5); Lymphocyte # 1.35 X10^3/ul (0.83-4.51); Lymphocyte % 19.3 % (19-41); Mean Corp Hgb Conc 33.3 g/dL (32-36); Mean Corpuscular Hgb 29.5 pg (27.0-32.0); Mean Corpuscular Volume 88.7 fL (80-94); Mean Platelet Vol. 9.5 fl (6.2-12.0); Monocyte# 0.55 X10^3/uL; Monocyte% 7.9 % (0-10); NRBC Flagged by Analyzer 0 % (0-5); Neutrophil # 4.98 X10^3/uL (2.7-7.7); Neutrophil % 71.4 % (47-70); Platelet Count 260 K/mm3 (150-450); RBC Distribution Width CV 12.5 % (11.6-14.6); Red Blood Count 5.49 M/mm3 (4.6-6.2)
[2022-03-14 19:32] LABS: Anion Gap 9 (5-15); BUN 13 mg/dL (7-18); BUN/Creat Ratio 13.9 RATIO (10-20); Calcium,Total 9.2 mg/dL (8.5-10.1); Chloride 110 mmol/L (98-107); Creatinine, Serum 0.94 mg/dL (0.70-1.30); EST Glomerular Filtration Rate 102 mL/min (>60); Est Glom Filt Rate - Afr Amer 123 mL/min (>60); Glucose 96 mg/dL (74-106); Potassium 3.6 mmol/L (3.5-5.1); Sodium Level 142 mmol/L (136-145)
[2022-03-14 20:17] LABS: Alcohol, Blood (Medical)-Serum < 3.0 mg/dL
[2022-03-14 20:50] LABS: Amphetamine Urine VISTA NEGATIVE (<1000 ng/mL); Barbiturate Urine VISTA NEGATIVE (< 200 ng/mL); Benzodiazepine Urine VISTA NEGATIVE (< 200 ng/mL); Cocaine Urine VISTA NEGATIVE (< 300 ng/mL); Ecstacy Urine VISTA NEGATIVE (< 500 ng/mL); Methadone Urine VISTA NEGATIVE (< 300 ng/mL); PCP Urine VISTA NEGATIVE (< 25 ng/mL); THC Urine VISTA POSITIVE (< 50 ng/mL); Vista UDS pH Range 5
--- NOTE | 2022-03-14 21:21 | ED.RN ---
crisis her to see patient at this time
--- NOTE | 2022-03-14 22:31 | ED.RN ---
Safety plan copy given to patient and patient . Copy also placed in chart.
== END 2022-03-14 22:38 | disposition home or self-care (01) ==
PROVIDERS: Emergency Provider Emergency Medicine; Visit Provider Emergency Medicine
DX: F31.81 Bipolar II disorder (principal); F12.20 Cannabis dependence, uncomplicated; R45.851 Suicidal ideations; F41.1 Generalized anxiety disorder; S50.812A Abrasion of left forearm, initial encounter; Z79.899 Other long term (current) drug therapy
CPT/HCPCS: 80048; 80307; 82077; 85025; 87811; 99283

== ENCOUNTER 2022-03-24 08:08 | Outpatient (RCR) | payer OTHER, MEDICAID, SELFPAY ==
[2022-03-24 00:38] VITALS: BP 119/72; PULSE 42
--- NOTE | 2022-03-24 09:00 | BH.SGPN.GN ---
Behaviors/Verbalizations/Mental Status: []Eye contact good, casually dressed, motor activity appropriate, speech normal rate and tone, mood euthymic, congruent affect, thoughts linear and intact, no evidence of delusions or hallucinations. Reviewed pt's symptom tracker pt denies any SI plan, or intent as of this date 03/24/22. Client Response/Progress/Benefit: [] Pt responded well to session, attentive and providing support. Pt reports feeling hopeful this morning as pt had a good conversation with his boss and co-workers which is making pt excited to return to work. Pt shared he is trying to focus on positive things and attract positive energy. Pt reports his functioning has improved since started IOP and he can consistently accomplish more things at home. Pt appeared to benefit from reflecting on his progress. Pt will continue IOP tx to promote mood stability and further improve work-related functioning. Narrative Note: []
--- NOTE | 2022-03-24 10:05 | BH.SGPN.GN ---
Behaviors/Verbalizations/Mental Status: [] Eye contact is good. Motor activity is appropriate. Appearance is casual. Speech is Appropriate. Mood is euthymic. Affect is full. Thoughts are linear and logical. No evidence of psychosis. Client Response/Progress/Benefit: [] Pt was an active participant in group discussions. Attentive during psychoeducation on SMART goals (Specific, Measurable, Achievable, Realistic, and Time-bound) Engaged in group experiential activity. Participated in an interactive discussion with peers in which they worked together to define what a goal is and the benefits of having goals. Benefits identified included; something to look forward too, needed for growth, keeps one motivated, helps us track our progress, given one a sense of purpose, and keeps one busy and engaged. Participated in interactive discussion in which group identified barrier to setting goals and following through with goals. Barriers identified included; too much time and effort, criticism from self/others, unrealistic expectations, outside stressors, and fear of failure. Benefited from increased awareness of benefits and strategies for goal-setting. Will continue in IOP to maintain safety, increase healthy coping, and improve functioning to return to work. Narrative Note: []
--- NOTE | 2022-03-25 15:22 | BH.MDN ---
Multi-Disciplinary Note - Note 45-min Individual Time Started:: 11:28 Date: 03/23/22 Purpose of session/treatment goals addressed:: Met with pt to review progress and outcome scores. Pt is set to discharge from [facility] Wednesday. Eye Contact:: Good Motor Activity:: Appropriate Appearance:: Casual Speech:: Appropriate Mood:: Euthymic, Anxious Affect:: Congruent Thoughts:: Linear, Logical, No evidence of hallucinations/delusions noted Staff Interventions:: motivational interviewing, CBT techniques, discharge planning, strengths perspective, reviewed DSM-5 Client Response:: Pt was open to session and responded well. Used the session to review progress on treatment plan goals, review outcome scores, and finalize aftercare. Reviewed internal and external skills to utilize when feeling overwhelmed to prevent pt reaching crisis and reduce self-harming urges. Pt also able to identify triggers for negative thought messages which can lead to overwhelming depression and skills to manage these thoughts (re-framing, distraction, challenging, and grounding skills). Pt has been using a mental health mood management jc on his tablet daily and recently trying to keep an accomplishment journal, as well as identifying his mental health wins for the day which has helped his depression. We reviewed his strategies to manage intrusive self-deprecating thoughts and feelings of worthlessness when external supports cancel plans or disappoint him (i.e. aguero mind). He was also able to identify several self-care skills for beginning to improve personal relationship with himself. Since starting [facility] pt reports significant progress stating ?I feel like I?ve learned skills to better manage the ?upside down? (depression) rather than be consumed by it?. This past week he has begun to play video games and watch movies he enjoys again which pt reports not doing for several months prior to tx. Plans to return to work full-time next week. He reports mild anxiety related to upcoming return to work, however feels able to manage. Risks/Concerns:: No risks or concerns noted. Denies self-harming in the past 5 days. Denies any SI, plan, or intent as of this date. Progress Toward Goals/Plan:: Progress noted per pt report. According to DSM-5 outcomes pt had an overall 33% reduction in symptoms since mid-point review. Pt had a 50% reduction in the depression domain, 50% reduction in the anger domain, a 100% reduction in thoughts of self-harming, and a 40% reduction in personality functioning domains. Pt has returned to activities he enjoys, plans to return to work Wednesday, and reports improved functioning. Has completed all treatment plan goals. Pt will be discharged from [facility] level of care, referred to DBT group through [facility] where he is connected with outpatient counseling. Intake appointment with psychiatry through [facility] scheduled for , 03/26/22. Time Stopped:: 12:00
--- NOTE | 2022-03-27 08:17 | BH.DS ---
Discharge Summary - Demographics Date of Admission:: 02/10/22 Discharge Date: 03/27/22 Presenting Problems at Admission:: The patient is a 26-year-old male with a history of depression which has been worsening since May 2021 with no apparent trigger. He was referred to [facility] tx by his and outpatient therapist for worsening symptoms of depression which pt reports has begun to impact his marriage. Pt was recently hospitalized after attending the [facility] program for one week following worsening sx with a plan to kill himself via propane. Pt unable to contract for safety at that time. Denies any SI, plan, or intent since inpatient hospitalization. Pt reports experiencing panic attacks and erratic moods several times per week. a few times a week and erratic moods. He states that he feels he becomes a little bit manic a few times a month and the these episodes last several days 2 or 3 days in which pt struggles to sleep, experiences hypersexuality, and is more irritable. Pt notes that work is a stressor, even though he loves his job. Currently endorses sx of decreased appetite, weight loss, passive thoughts of , anger and irritability, lack of motivation, hopelessness, worthlessness, and guilt over everything, low energy, poor concentration, racing thoughts due to worry and negative rumination, and PTSD sx. Pt indicates current sx are impacting productivity at work, as well as negatively influencing his ability to function at home, within his relationships, and in completing daily tasks. Goal Relevant Strengths/Supports: Pt has some insight into his mental health, he is connected with outpatient counseling at [facility], and pt reports liking his job. Pt's daughters are his protective factors and pt has motivation to get better. Discharge Diagnoses:: 1. Bipolar 2 disorder (most recent episode depressed). 2. Borderline personality disorder. 3. CARINA. 4. PTSD. 5. Nicotine and marijuana use disorder Reason for Discharge:: Pt has been able to maintain safety, and is utilizing crisis resources as needed. Pt is voluntarily discharging due to returning to full-time employment and has met maximum benefit from [facility]. - Treatment Progress During Treatment & Response: Per pt's DSM 5 cross cutting measure at discharge pt's depressive symptoms have reduced by 60% compared to mid-point review scores, self-harming urges reduced by 100%, irritability decreased by 50% and overall symptom reduction of 33%. Prior to IOP pt had been to the ER several times for mental health reasons and had one inpatient admission for suicidal threats. During pt's IOP treatment he has been to the ER once and has maintained safety. Pt often provided contributions to the group sessions. Pt struggled with consistent communication with supports and did not apply healthy skills consistently. Issues Still to be Addressed:: One of pt's biggest stressors is interpersonal relationship conflict which seemed to be significant barrier to treatment progress in IOP. He could benefit from couples counseling to help address underlying issues and improve relationship. Could also benefit from continued reinforcement of healthy coping skills, using distress tolerance skills, and challenging distorted thoughts. Discharge Recommendations/Instructions:: Pt has an already established outpatient counselor at [facility] and psychiatrist through [facility]. Pt states he will return to his outpatient psychiatrist. Pt additionally recommended to begin the DBT group through [facility] following IOP d/c. Discharge Handout: Complete Discharge Handout with client on aftercare options and continuity of care.
--- NOTE | 2022-03-27 09:10 | BH.SGPN.GN ---
Behaviors/Verbalizations/Mental Status: [] Eye contact is good. Motor activity is appropriate. Appearance is casual. Speech is Appropriate. Mood is euthymic. Affect is full. Thoughts are linear and logical. No evidence of psychosis. Reviewed daily check in sheet and no reports of suicidal ideations or intent. Client Response/Progress/Benefit: [] Pt was an active participant in group discussion. Attentive. Daily symptom tracker notes 05/28 for agitation. Mental health win was that he returned to work this AM. increased energy and motivation. I feel good and work went well. Shared that today is his last day in [facility] and believes that he has made significant progress over the past several weeks. Admits to ups and downs however insight that addressing and talking about stressors rather than avoiding has been overall beneficial. The group in [facility] was most helpful was goal-setting. Stressors are currently finances and his returning to work. Benefited from group support, encouragement, and feedback. Will be discharged from [facility] today. Narrative Note: []
--- NOTE | 2022-03-27 10:08 | BH.SGPN.GN ---
Behaviors/Verbalizations/Mental Status: []Pt alert and oriented, casually dressed and appropriately groomed. Eye contact good. Motor activity appropriate. Speech within normal limits. Affect congruent, mood euthymic. Thoughts linear, logical, no signs of hallucinations or delusions. Client Response/Progress/Benefit: []Pt was an engaged participant AEB providing input, listening to others, and taking notes. Participated in interactive group discussion on internal and external barriers to mental health progress. Pt described current reality as climbing a mountain and getting closer to the top of it. Reported desired reality is continuing to get closer to his goals while also being able to communicate with his supports more open and honestly. Client shared personal barriers to desired realty include: distortions, low self-worth, and not communicating with supports. Benefited from increased awareness of current barriers to progress as well as current/desired realities. Pt will d/c from IOP on this date and continue with outpatient tx to maintain gains, increase consistent use of healthy coping, and prevent decompensation. Narrative Note: []
--- NOTE | 2022-03-27 11:10 | BH.SGPN.GN ---
Behaviors/Verbalizations/Mental Status: []Pt alert and oriented, neatly dressed and groomed. Eye contact good. Motor activity appropriate. Speech within normal limits. Affect constricted, mood euthymic. Thoughts linear, logical, no signs of hallucinations or delusions. Client Response/Progress/Benefit: []Pt engaged during activity, encouraging peers, and contributed as group brainstormed ideas on how to cope with internal barriers that keep pts stuck from moving towards goals. Able to identify barriers to desired reality. Identified barriers to current reality to include fear of failure, lack of personal value, and all or nothing thinking. Pt wants to work on overcoming the barrier of not having ?any personal value? by continuing to write daily affirmations and using self-talk to help trust his supports? feedback. Benefited from group by identifying obstacles and solutions to desired reality.? Pt will discharge from IOP tx today as pt has accomplished his tx goals and no longer meets criteria for IOP level of care. Narrative Note: []
== END 2022-03-27 13:20 | disposition home or self-care (01) ==
LOC: BHIOP 08:08
PROVIDERS: Visit Provider Psychiatry & Neurology Psychiatry
DX: F31.81 Bipolar II disorder (principal); F60.3 Borderline personality disorder; F41.1 Generalized anxiety disorder; F43.10 Post-traumatic stress disorder, unspecified; Z72.0 Tobacco use; F12.90 Cannabis use, unspecified, uncomplicated
CPT/HCPCS: S9480; 90853

== ENCOUNTER 2022-04-02 14:08 | Outpatient (RCR) | payer OTHER, MEDICAID, SELFPAY | END 2022-04-09 14:16 | disposition home or self-care (01) | LOC: BHOG 14:08 | PROVIDERS: Referring Provider Psychiatry & Neurology Psychiatry; Visit Provider Psychiatry & Neurology Psychiatry | DX: Z00.00 Encounter for general adult medical examination without abnormal findings (principal) ==

== ENCOUNTER 2022-04-23 13:00 | Outpatient (RCR) | payer MEDICAID, SELFPAY ==
--- NOTE | 2022-04-23 14:00 | BH.SGPN.GN ---
Behaviors/Verbalizations/Mental Status: []Client alert and oriented, casually dressed and groomed. Eye contact good. Motor activity appropriate. Speech within normal limits. Affect congruent, mood dysthymic, anxious. Thoughts linear, logical, no signs of hallucinations or delusions. Client Response/Progress/Benefit: []Receptive of session, reports feeling ?upset? today as he is having some financial and occupational difficulties at the moment, but did well to identify skills he has been using to help cope. Skills included: sitting with the uncomfortable, looking for alternative choices/finding a new job, communicating with supports, and mindfulness to keep his mental health in a positive place. Attentive during discussion of vulnerability and benefits of practicing vulnerability. Reports connecting with reasons we avoid being vulnerable as identified by the group. Shared he expects others to be vulnerable with him but struggles to be vulnerable with others. Group discussed ways we avoid feeling vulnerable and how this negatively affects mental health and relationships. Appeared to benefit from group support and discussion reflecting on the positive impact vulnerability can have on mental health. Shared he could try to be more open/honest with supports about looking for a new job to practice being vulnerable in the next week. Will continue IOP aftercare to promote gains and reinforce healthy coping skills. Narrative Note: []
--- NOTE | 2022-04-23 14:01 | BH.COMM ---
Communication Note - Communication with Client Communication Note: Presented completed IOP and presents today to starting relapse prevention group which meets once weekly (1.5 hours) for 10 weeks. Case discussed with Dr. Waddell with plan to admit with dx of F31.81
== END 2022-05-08 07:27 | disposition home or self-care (01) ==
LOC: BHOG 13:00
PROVIDERS: Referring Provider Psychiatry & Neurology Psychiatry; Visit Provider Psychiatry & Neurology Psychiatry
DX: F31.81 Bipolar II disorder (principal)
CPT/HCPCS: 90853

== ENCOUNTER 2023-06-23 08:00 | Outpatient (RCR) | payer BC, MEDICAID, SELFPAY ==
--- NOTE | 2023-06-23 09:05 | BH.SGPN.GN ---
Behaviors/Verbalizations/Mental Status: [Patient was alert and oriented, appropriately dressed and groomed. Eye contact was good, motor activity normal, speech within normal limits. Affect congruent, mood content. Thoughts linear, logical, no signs of hallucinations or delusions. Reviewed Patients symptom tracker and the patient reports depressed mood, anxiety/panic attacks, agitation/irritability/anger, self-harm risk, and thoughts/risk of suicide within normal limits.] Client Response/Progress/Benefit: [Patient was engaged and open to the discussion. Patient reported his mood to be ?exhausted?. Patients first win is that he managed to get to group. He shared that he has ?stuck himself in a hole? and has not been able to crawl out. But identified that he was able to start by coming to group. Patients second win was that he took his daughters to the library yesterday and they picked out books for them to read together. Patients stressor is that he has been up for over 24 hours and is very exhausted. Patient was interactive and respectful with other group members about their mental wins and stressors. Patient benefited from the discussion by listening to feedback and giving input on his peer?s stressors and mental health wins. Patient will continue with IOP treatment to help develop healthy skills, promote mood stability, and improve distress tolerance. ] Narrative Note: []
--- NOTE | 2023-06-23 10:15 | BH.SGPN.GN ---
Behaviors/Verbalizations/Mental Status: []Pt alert and oriented, casually dressed and groomed. Eye contact good. Motor activity appropriate. Speech within normal limits. Affect congruent, mood dysthymic and tired. Thoughts linear, logical, no signs of hallucinations or delusions. Client Response/Progress/Benefit: [] Pt receptive of session, actively engaged throughout AEB taking notes, providing input, and contributing in small group discussion. Appeared to connect with group topic of cognitive distortions and the impact of thought patterns on mental health, coping behaviors, and relationships. Pt connected most with distortions of all or nothing thinking, catastrophizing, and jumping to conclusions. able to identify how these distortions impact functioning. Pt appeared to benefit from gaining insight on distorted thinking patterns and how this impacts overall mental health. Will continue IOP tx to prevent decompensation, improve daily functioning, and increase distress tolerance skills. Narrative Note: []
--- NOTE | 2023-06-23 10:25 | BH.NA ---
Physical Data Vital Signs Pulse Rate: 52 Blood Pressure: 140/98 Height/Weight Height: 1.8 m Weight:: 86.183 kg Weight in Pounds: 190.0 lbs Current Medication Compliance Medication Compliance Do you take your medication as prescribed?: Yes Nutritional History Appetite Nutritional Instructions: Describe your appetite:: Good Additional nutritional information:: Client denies recent change in weight or appetite. Functional Assessment Sleep Pattern Describe any problems with sleeping: Client states he sleeps about 4-5 hours per night. Sensory/Communication Assess Vision Problems Do you have any vision problems?: Glasses Communication Problems Do you have difficulty understanding what people are saying?: No Medical Problems/History Metabolic Conditions Metabolic: Hypothyroidism (newly diagnosed this month) Musculoskeletal Conditions Musculoskeletal: Arthritis Pain Assessment Do you have acute or chronic pain?: Yes (back- going to see a relations specialist this week) Family History Family History Other Alcoholism Anxiety Arthritis CVA (cerebral vascular accident) Cancer Depression Hypertension Myocardial infarction Additional History Additional comments:: Vitamin D deficiency- newly diagnosed. Recently had a cardiology work-up due to palpitations and new hypothyroid- echo was normal. Surgical History Surgical History Have you had any surgeries? If so, list type and date:: Yes (03/15- hernia repair) Substance Abuse Substance Abuse Please describe substance abuse in the last 30 days:: Client reports alcohol use in the past but denies current or recent use. Client states he was vaping nicotine but quit about 2 months ago. Client states he has a history of marijuana use, but has not used in 4 months. Client states he rarely drinks caffeine, but today is drinking an energy drink due to lack of sleep. Mental Status Summary Mental Status Significant Findings/Observations on Appearance and Mood:: Client is alert and oriented x 4. Client is casually groomed. Client is cooperative with assessment. Client makes good eye contact. Client's voice has normal rate and volume. Client has restricted affect. Client makes logical associations and has normal processing. Client denies delusions/hallucinations. Client denies SI this day. Suicide Assessment Suicidal Ideation Are you currently or have you been suicidal in the past?: Yes Suicidal Intentional Rating Scale (SIRS): Suicidal thoughts (past) (denies current SI) Physician Notification Past Psychiatric History MH Treatment Hx Past Psychiatric Medications:: Prozac, Trazodone Age of first mental health symptoms: Client states he was first depressed around age 12, and states he was first on medication for mental health at age 26. Describe (age, circumstance, etc) any past hospitalizations: [facility] 02/06-02/09/22 for SI. Current providers for mental health treatment (counselor, psychiatrist, case management social worker, etc.): [facility] for therapy, Dr. Fraire for psychiatry Fall Risk Assessment Age Age: Less than 60 Mental Status Mental Status: Willing & able to ask for assistance when needed Physical Status Physical Status: No problems Impairments Impairments: None Elimination Elimination: Continent AND independent Gait or Balance Gait or Balance: Walks independently Hx of Falls History of falls in the past 6 months: No known history Medications/Substances Psychotropics:: Antipsychotics Medications/substances used within the past 24 hours or ordered to administer: 1-2 of the medications/substances listed above Total Score Total Points:: 1 RN Summary of Impressions Impressions Recommendations Impressions: Psychiatric Issues: 1. Bipolar 2 disorder (most recently depressed) 2. Generalized anxiety disorder 3. PTSD 4. Strong cluster B traits Level of Care How do the client's current symptoms and functional deficits support need for this level of care?: Client was in IOP in January 2022, and was self-referred back at this time due to depression. Client states he has felt an increase in his depression since March 2023, stating the holidays are always a trigger for depression for him due to his history with his mother. Client also states his physical health has declined, and his back pain has increased to a point that he has a hard time moving at times. Client states he has a best friend that has been his biggest support person that he used to talk to daily, but states they talk 2 times per week now which has been a stressor. Client states for the last few weeks, he has been having daily panic attacks. Client did have SI and on 06/18/23 talked to his counselor and made a safety plan, but client denies SI this day. IOP will promote gains and prevent further decompensation while providing social support and skills training.
[2023-06-23 10:48] VITALS: BP 140/98; PULSE 52
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
--- NOTE | 2023-06-23 12:23 | BH.DR.ITP ---
Initial Treatment Plan Patient Information Visit Information: ADMISSION DATE: EXPECTED LOS: 4-6 weeks Problems/Symptoms Problem #1:: Depression Symptom:: Sadness, hopelessness, worthlessness, biological disruption of sleep, low energy, decreased concentration, guilt, recent passive thoughts of , recent suicidal ideation with a plan Problem #2:: Anxiety Symptom:: Worry, rumination, panic attacks
--- NOTE | 2023-06-23 15:03 | BH.MDN_ITS ---
Multi-Disciplinary Note Note 30-min Individual: Time Started:: 08:26 Date: 06/23/23 Purpose of session/treatment goals addressed:: To address current stressors, gather information on pt's history and tx goals, and build trust and rapport. Eye Contact:: Good Motor Activity:: Restless Appearance:: Disheveled (clothing appeared dirty) and Casual Speech:: Appropriate Mood:: Anxious and Depressed Affect:: Congruent Thoughts:: Linear, Logical and No evidence of hallucinations/delusions noted Staff Interventions:: motivational interviewing, rapport building, strengths perspective, treatment planning and other (completed psychosocial assessment ) Client Response:: Pt responded well to session, open to meeting with therapist. Pt shared he found the IOP program to be helpful in the past and is hopeful it will help him to better manage his current sx. Pt completed the IOP treatment program from January 2022-April 2022 to address sx of depression, mood instability, and anxiety. Shared that this admission he would like to focus primarily on addressing increased depressive sx and difficulties self-regulating when experiencing frustration or unexpected triggers. Pt reports worsening sx since March 2023, which he believes was triggered by a combination of several psychosocial stressors and new physical pain. During this time, pt disclosed he stopped attending regular outpatient counseling appointments, withdrew from supports, and quit engaging in hobbies/activities he enjoys. 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 Described his occupational stress came to a head on Wednesday and pt noted ?I just had enough and broke down at work. I cried the entire shift?. Following this, pt shared sitting in his car and contemplated going home to secure a propane tank with the intent of suicide. He instead called his sister who convinced pt to seek mental health help. Pt contacted his outpatient counselor the next day to reestablish care and is now scheduled with her weekly. Pt additionally gave his [id number] the propane tank for the time being and reports his has secured all other lethal means, including pt?s medications. Pt denies any SI since this occurred last week. He went on to indicate he was diagnosed with a severe vitamin D deficiency and hypothyroidism 2 weeks ago and has been on medication to monitor these conditions since. Some improvement with pain management and sleep following diagnosis and start of medication. Identified current psychosocial stressors as ongoing issues with physical pain, difficulties sleeping (pt shared he has not slept in the past 24 hours due to inability to fall asleep and stay asleep), occupational stress, lorena gering emotional disturbance following an interaction with his [id number] during the holidays, and interpersonal conflict within the relationship with his best friends whom are two of his primary supports. At time of admission, pt endorses depression, isolation, negative self-talk, guilt, hopelessness, suicidal ideation last week, irritability and verbal outbursts, anhedonia, sleep disturbances, low motivation, poor concentration, mood instability, crying spells, and fears of abandonment. Pt reports wanting to work on improving his ability to prevent and manage his mental health sx, increase positive self-talk and self-esteem, reengage in activities he enjoys, improve socialization with supports, and improve distress tolerance. Risks/Concerns:: Pt denies any active SI, plan, or intent to date. Pt does admit to having suicidal ideation and vague intent last week; however was willing to reach out for support, has secured all potential lethal means, and was willing to safety plan with outpatient provider. Pt able to recite plan back to therapist today. Denies SI, plan, or intent since. Protective factors noted and pt future oriented. Will continue to monitor. Progress Toward Goals/Plan:: Pt's first day of IOP tx, so no progress to document. Pt reports that his mood is more hopeful since gaining support of the IOP program and he is optimistic he will continue to make progress in managing his emotions and stress. Pt identified tx goals as improving his ability to prevent and manage his mental health sx, increase positive self-talk and self- esteem, reengage in activities he enjoys, improve socialization with supports, and improve distress tolerance. Pt will continue IOP tx to prevent decomp ensation and maintain safety, improve daily functioning, and increase healthy coping skills. Time Stopped:: 09:00
--- NOTE | 2023-06-23 15:27 | BH.MTP_ITS ---
Master Treatment Plan Patient Information Program Physician:: Dr. Ruth Meek Primary Therapist:: RUIZ Quintanilla Psychiatric Diagnoses Psychiatric Diagnoses:: 1. Bipolar 2 disorder (most recently depressed) 2. Generalized anxiety disorder 3. PTSD 4. Strong cluster B traits Diagnosis Code(s):: F 31.81 Estimated LOS Estimated LOS (in weeks):: 6 Problem/Goal #1 Problem/Goal #1 Stated Goal:: Client will reduce depression and hopelessness due to Bipolar Disorder through IOP Services. Description of Barriers: Pt has a hx of trauma which has contributed to the development of significant negative core beliefs and trauma triggers for PTSD. Pt has a hx of inconsistent follow-through when struggling, reports strained relationships with his primary supports, and has a hx of poor distress tolerance as well. Functional Impact: Pt is a 27-year-old male with a history of bipolar 2 disorder, depression, PTSD and anxiety who completed the [facility] behavioral health IOP in January 2022. He was referred back to the IOP by his counselor on June 18, 2023 for worsening symptoms of depression for the past 2 months. Pt reports his sx have resulted in receiving an attendance warning at work due to missing 3 days in the past 2 months as he reports he was too depressed to get out of bed. Pt?s symptoms have been steadily worsening since March and on June 18 when meeting with his outpatient therapist, pt reported her had suicidal ideation with plan to use a propane tank on the but his sister was able to calm him down. Pt previously had a plan for suicide with a propane tank in January 2022 when last in the IOP program. Denies SI in the last week since. Current stressors include interpersonal conflict with his two best friends, occupational and financial stress, and physical pain due to ongoing medical issues. Pt additionally reports an inability to sleep and shares he has not slept in the last 23 hours. At time of admission pt endorses depression, isolation, negative self-talk, guilt, hopeles sness, suicidal ideation last week, irritability and verbal outbursts, anhedonia, sleep disturbances, low motivation, poor concentration, mood instability, crying spells, and fears of abandonment. The patient additionally has a hx of childhood trauma and indicates experiencing flashbacks, nightmares, reexperiencing and avoidance due to his past history of trauma. Pt recommended IOP level of care due to mental health sx impacting social and occupational functioning, as well as his ability to complete daily responsibilities. Objectives Objective #1: Stated Objective: Client will learn and utilize 2-3 healthy coping strategies to manage depressive symptoms as shown by reduced DSM-5 cross-cutting symptom measure score. Interventions: Client will learn and utilize 2-3 healthy coping strategies to manage depressive symptoms as shown by reduced DSM-5 cross-cutting symptom measure score. Interventions: Therapist will provide psychoeducation on depression and help client increase awareness of warning signs and triggers. Therapist will promote client self-empowerment and self-esteem by helping client identify strengths, personal resilience factors, and positives of boundary setting. Therapist will help client identify their triggers and teach client various coping strategies to effectively cope with depressive symptoms. Discharge Criteria: Pt will be able to identify and more consistently implement 2-3 healthy coping skills for depression. Pt will also see a reduction in DSM-5 scores for depression. Target Date: 08/04/23 Review Date: 07/14/23 Objective #2: Stated Objective: Client will reduce isolation and increase social activity to at least one additional activity per week. Interventions: Therapist will help client explore activities enjoys engaging in and help connect to those activities. Discharge Criteria: Pt will report consistently engaging in at least one social activity each week. Target Date: 08/04/23 Review Date: 07/14/23 Problem/Goal #2 Problem/Goal #2 Stated Goal:: Client will reduce anxiety sx, including the frequency, intensity and duration of panic attacks while increasing ability to function on daily basis. Description of Barriers: Pt has a hx of trauma which has contributed to the development of significant negative core beliefs and trauma triggers for PTSD. Pt has a hx of inconsistent follow-through when struggling, reports strained relationships with his primary supports, and has a hx of poor distress tolerance as well. Functional Impact: Pt is a 27-year-old male with a history of bipolar 2 disorder, depression, PTSD and anxiety who completed the [facility] behavioral health IOP in January 2022. He was referred back to the IOP by his counselor on June 18, 2023 for worsening symptoms of depression for the past 2 months. Pt reports his sx have resulted in receiving an attendance warning at work due to missing 3 days in the past 2 months as he reports he was too depressed to get out of bed. Pt?s symptoms have been steadily worsening since March and on June 18 when meeting with his outpatient therapist, pt reported her had suicidal ideation with plan to use a propane tank on the but his sister was able to calm him down. Pt previously had a plan for suicide with a propane tank in January 2022 when last in the IOP program. Denies SI in the last week since. Current stressors include interpersonal conflict with his two best friends, occupational and financial stress, and physical pain due to ongoing medical issues. Pt additionally reports an inability to sleep and shares he has not slept in the last 23 hours. At time of admission pt endorses depression, isolation, negative self-talk, guilt, hopelessness, suicidal ideation last week, irritability and verbal outbursts, anhedonia, sleep disturbances, low motivation, poor concentration, mood instability, crying spells, and fears of abandonment. The patient additionally has a hx of childhood trauma and indicates experiencing flashbacks, nightmares, reexperiencing and avoidance due to his past history of trauma. Pt recommended IOP level of care due to mental health sx impacting social and occupational functioning, as well as his ability to complete daily responsibilities. Objectives Objective #1: Stated Objective: Client will identify 2-3 anxiety/panic triggers and 2 coping skills to use when feeling anxious to manage anxiety as shown by decreasing her DSM-5 scores for anxiety. Interventions: Discuss how panic attacks are ?false alarms? of danger, not medically dangerous, common but often lead to unnecessary fear and avoidance: correct myths and misconceptions about panic symptoms (going crazy, dying, losing control) that contribute to fear and avoidance. Teach the client progressive muscle relaxation as a daily exercise for general relaxation and train him/her in the use of coping strategies (staying focused on behavioral goals, muscular relaxation, evenly paced diaphragmatic breathing, positive self- talk) to manage symptom attacks. Discharge Criteria: Pt will be able to identify 2-3 anxiety triggers causing panic and successfully implement at least 2 healthy skills for better managing sx. Pt will see a reduction in DSM-5 scores for anxiety as well. Target Date: 08/04/23 Review Date: 07/14/23 Objective #2: Stated Objective: Client will identify 2-3 cognitive distortions that lead to rumination and learn 2-3 ways to manage these thoughts to better manage anxiety. Interventions: Therapist will provide education on the most common cognitive distortions and teach client the connection between thoughts, emotions, and feelings. Therapist will assist client in identifying, challenging, and replacing dysfunctional thoughts with positive, more realistic thoughts. Discharge Criteria: Pt will be able to identify and replace at least 2 distorted thoughts that reinforce sx of anxiety. Target Date: 08/04/23 Review Date: 07/14/23
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
== END 2023-06-23 23:59 ==
LOC: BHIOP 08:00
PROVIDERS: Referring Provider Psychiatry & Neurology Psychiatry; Visit Provider Psychiatry & Neurology Psychiatry
DX: F31.81 Bipolar II disorder (principal); F41.1 Generalized anxiety disorder; F43.10 Post-traumatic stress disorder, unspecified; Z79.899 Other long term (current) drug therapy
CPT/HCPCS: S9480; 90832; 90853

== ENCOUNTER 2023-06-24 07:52 | Outpatient (RCR) | payer BC, MEDICAID, SELFPAY ==
[2023-06-24 00:36] VITALS: BP 140/98; PULSE 52
--- NOTE | 2023-06-25 09:41 | BH.MTP ---
[facility] Patient Information Program Physician:: Dr. Ruth Meek Primary Therapist:: RUIZ Quintanilla Psychiatric Diagnoses Psychiatric Diagnoses:: 1. Bipolar 2 disorder (most recently depressed) 2. Generalized anxiety disorder 3. PTSD 4. Strong cluster B traits Diagnosis Code(s):: F31.81 Estimated LOS Estimated LOS (in weeks):: 6 Problem/Goal #1 Problem/Goal #1 Functional Impact: Pt is a 27-year-old male with a history of bipolar 2 disorder, depression, PTSD and anxiety who completed the [facility] IOP in January 2022. He was referred back to the IOP by his counselor on June 18, 2023 for worsening symptoms of depression for the past 2 months. Pt reports his sx have resulted in receiving an attendance warning at work due to missing 3 days in the past 2 months as he reports he was too depressed to get out of bed. Pt?s symptoms have been steadily worsening since March and on June 18 when meeting with his outpatient therapist, pt reported her had suicidal ideation with plan to use a propane tank on the but his sister was able to calm him down. Pt previously had a plan for suicide with a propane tank in January 2022 when last in the IOP program. Denies SI in the last week since. Current stressors include interpersonal conflict with his two best friends, occupational and financial stress, and physical pain due to ongoing medical issues. Pt additionally reports an inability to sleep and shares he has not slept in the last 23 hours. At time of admission pt endorses depression, isolation, negative self-talk, guilt, hopelessness, suicidal ideation last week, irritability and verbal outbursts, anhedonia, sleep disturbances, low motivation, poor concentration, mood instability, crying spells, and fears of abandonment. The patient additionally has a hx of childhood trauma and indicates experiencing flashbacks, nightmares, reexperiencing and avoidance due to his past history of trauma. Pt recommended IOP level of care due to mental health sx impacting social and occupational functioning, as well as his ability to complete daily responsibilities. Problem/Goal #2 Problem/Goal #2 Functional Impact: Pt is a 27-year-old male with a history of bipolar 2 disorder, depression, PTSD and anxiety who completed the [facility] IOP in January 2022. He was referred back to the IOP by his counselor on June 18, 2023 for worsening symptoms of depression for the past 2 months. Pt reports his sx have resulted in receiving an attendance warning at work due to missing 3 days in the past 2 months as he reports he was too depressed to get out of bed. Pt?s symptoms have been steadily worsening since March and on June 18 when meeting with his outpatient therapist, pt reported her had suicidal ideation with plan to use a propane tank on the but his sister was able to calm him down. Pt previously had a plan for suicide with a propane tank in January 2022 when last in the IOP program. Denies SI in the last week since. Current stressors include interpersonal conflict with his two best friends, occupational and financial stress, and physical pain due to ongoing medical issues. Pt additionally reports an inability to sleep and shares he has not slept in the last 23 hours. At time of admission pt endorses depression, isolation, negative self-talk, guilt, hopelessness, suicidal ideation last week, irritability and verbal outbursts, anhedonia, sleep disturbances, low motivation, poor concentration, mood instability, crying spells, and fears of abandonment. The patient additionally has a hx of childhood trauma and indicates experiencing flashbacks, nightmares, reexperiencing and avoidance due to his past history of trauma. Pt recommended IOP level of care due to mental health sx impacting social and occupational functioning, as well as his ability to complete daily responsibilities.
--- NOTE | 2023-06-28 09:00 | BH.SGPN.GN ---
Behaviors/Verbalizations/Mental Status: [Patient was alert and oriented, appropriately dressed and groomed. Eye contact was good, motor activity normal, speech within normal limits. Affect congruent, mood content. Thoughts linear, logical, no signs of hallucinations or delusions. Reviewed Patients symptom tracker and the patient reports depressed mood, anxiety/panic attacks, agitation/irritability/anger, self-harm urges, and thoughts/risk of suicide within normal limits.] Client Response/Progress/Benefit: [Patient was engaged and open to the discussion. Patient reported his mood to be ?drained?. Patient stated his stressor is that he was up all night with his daughter because she was having nightmares. Patients first win however is that he has been sleeping better since being on this new medication which makes him glad. His second win is that he started a project in his basement this weekend and was happy with the progress. Patient was interactive and respectful with other group members about their mental wins and stressors. Patient benefited from the discussion by listening to feedback and giving input on her peer?s stressors and mental health wins. Patient will continue with IOP treatment to help develop healthy skills, promote mood stability, and improve distress tolerance. ] Narrative Note: []
--- NOTE | 2023-06-28 10:10 | BH.SGPN.GN ---
Behaviors/Verbalizations/Mental Status: []Pt alert and oriented, causally dressed and groomed. Eye contact fair. Motor activity appropriate. Speech within normal limits. Affect constricted, mood anxious. Thoughts linear, logical, no signs of hallucinations or delusions. Client Response/Progress/Benefit: [] Pt was actively engaged, providing input, and taking notes throughout session. Connected with the topic of pitfalls and listened to group discussion on internal and external barriers that prevent from choosing a healthier path to mental wellness. Group worked together to identify examples of personal internal pitfalls and pt identified theirs as avoidance of isolation, negative self-talk, fear of abandonment, and co-dependency. Pt benefited from group as pt learned to better identify and normalize potential barriers to improving mental health symptoms. Pt also gained awareness of the difference between external triggers and self-sabotaging behaviors. Pt will continue IOP tx to improve distress tolerance, increase healthy coping skills, and prevent decompensation.
--- NOTE | 2023-06-28 11:10 | BH.SGPN.GN ---
Behaviors/Verbalizations/Mental Status: []Pt alert and oriented, casually dressed and groomed. Eye contact good. Motor activity appropriate. Speech within normal limits. Affect constricted, mood depressed. Thoughts linear, logical, no signs of hallucinations or delusions. Client Response/Progress/Benefit: [] Pt receptive of session, engaged throughout AEB actively contributing and listening to discussion, as well as taking notes. Pt participated in the experiential activity and processed with group how their emotions, perspective, and reactions positively and negatively impacted the outcome. Pt identified pitfalls they struggle with and shared wanting to work on pitfall of co-dependency by using opposite action. Benefited from identifying personal pitfalls and strategies to overcome these pitfalls. Will continue IOP tx to prevent decompensation, improve daily functioning, and reduce negative self-talk. Narrative Note: []
--- NOTE | 2023-06-30 09:19 | BH.MDN_ITS ---
Multi-Disciplinary Note Note 45-min Individual: Time Started:: 08:35 Date: 06/30/23 Purpose of session/treatment goals addressed:: To address current stressors as well as begin working on a return to work coping plan. Eye Contact:: Good Motor Activity:: Appropriate Appearance:: Casual Speech:: Appropriate and Soft Mood:: Euthymic and Anxious Affect:: Congruent Thoughts:: Linear, Logical and No evidence of hallucinations/delusions noted Staff Interventions:: motivational interviewing, CBT techniques, strengths perspective and other (began return to work plan) Client Response:: Pt responded well to session, actively engaged throughout. Reports that since beginning the IOP program last week, his mood has been ?genuinely better? and he is already seeing progress. Discussed beginning to get back into activities he enjoys such as reading, video games, and playing with his kids. 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 Does continue to physical pain issues which impact his sleep and often causes irritability. Pt does have several medical appointments scheduled to continue address his pain, is beginning physical therapy, and has made an appointment for a massage this week as well. Pt and therapist discussed the importance of proactively communicating with his to discuss his support needs on bad pain days to avoid conflict or over working his body. Pt went on to share that he will be returning to work full-time next Wednesday. Reports plans to remain in the IOP program while also working. Pt works 2nd shift which is a concern for treatment progress and attendance as he be getting limited sleep before attending groups for the day. Pt does not believe this will be an issue and reports plans to take a nap between IOP group and the start of his work shift. Additionally, discussed plans to inquire about increasing his sleep medication prevent interrupted s leep. Therapist discussed concerns regarding pt ability to continue engaging in consistent self-care activities, as well as maintain mood stability, as pt only began treatment 1 week ago. Conversation about scheduling specific self-care time to prevent decompensation. Pt reports willingness to create a written self- care plan for homework to review in next session prior to return to work. Risks/Concerns:: Pt denies any active SI, plan, or intent as of this date, Progress Toward Goals/Plan:: Progress noted. Pt reports finding the IOP groups and connecting with fellow participants to be beneficial. Describes improved mood and reengaging in household responsibilities, activities he enjoys, as well as improved ability to reach out to supports. Pt does have a hx of struggling with maintaining consistency in skill application and is easily dysregulated by unexpected stressors. Pt plans to return to work full-time which is a concern for tx attendance and goal progress. Pt willing to work on a return to work coping plan to review next session. Recommended continued IOP tx to continue to promote continued skill application, encourage mood stability, and prevent decompensation as pt transitions back to work. Time Stopped:: 09:15
--- NOTE | 2023-06-30 10:10 | BH.SGPN.GN ---
Behaviors/Verbalizations/Mental Status: []Pt alert and oriented, neatly dressed and groomed. Eye contact good. Motor activity appropriate. Speech within normal limits. Affect congruent, mood depressed. Thoughts linear, logical, no signs of hallucinations or delusions. Client Response/Progress/Benefit: [] Pt was an active?participant in small group discussion. Pt?s group worked together to identify benefits of healthy relationships which included insight, accountability, and guidance. Group identified factors that lead to unhealthy relationships. Pt?s personal factors included allowing ?personal boundaries to be violated?, fear of being alone, and poor mental health. Actively participated in group experiential activity and expressed ideas to group. Benefited from increased insight and awareness of benefits of healthy relationships and factors that contribute to unhealthy relationships. Will continue IOP tx to prevent decompensation, improve daily functioning, and reduce negative thinking patterns. ? Narrative Note: []
--- NOTE | 2023-06-30 11:15 | BH.SGPN.GN ---
Behaviors/Verbalizations/Mental Status: [] Client alert and oriented, casually dressed and groomed. Eye contact good. Motor activity appropriate. Speech within normal limits. Affect congruent, mood content. Thoughts linear, logical, no signs of hallucinations or delusions. Client Response/Progress/Benefit: [] Client responded well to session, engaged and taking notes throughout. Worked with group to connect components of the experiential activity with characteristics of healthy and unhealthy relationships. Attentive during psychoeducation about characteristics of healthy, unhealthy, and abusive relationships. Client stated that within the relationship with his he does well with honesty, respect, and communication. Client reported an area he would like to work on is challenging his own trust issues so they do not unfairly impact the relationships around him. Appeared to benefit from identifying the current healthy relationship attributes and an area client wants to work on to build healthier relationships. Client to continue IOP to increase healthy coping skills, stabilize mood, and prevent decompensation. Narrative Note: []
--- NOTE | 2023-07-01 09:05 | BH.SGPN.GN ---
Behaviors/Verbalizations/Mental Status: [] Eye contact is poor. Motor activity is appropriate. Appearance is casual. Speech is Appropriate. Mood is depressed/irritable. Affect is flat. Thoughts are linear and logical. No evidence of psychosis. Reviewed daily check in sheet and no reports of suicidal ideations or intent. Client Response/Progress/Benefit: [] Pt participated when prompted. Poor eye contact. Attentive AEB head-nodding. Daily symptom tracker notes 2/5 for depression. Pt reports recent struggles with his mental health physical health. Shared he is having significant back and hip pain which is impacting his mental health. Elaborated on how pain can increase irritability, hopelessness, and a myriad of other emotions. Hopelessness and frustration related to a recent medical appointment with a specialist which he felt was a set-back. Advocated for himself however continues to ruminate about the possibility of his physical pain decreasing. Limited progress as noted above. Benefited from group support, encouragement, and support. Will continue in IOP to maintain safety, prevent decompensation, and to increase healthy coping. Narrative Note: []
--- NOTE | 2023-07-01 11:15 | BH.SGPN.GN ---
Behaviors/Verbalizations/Mental Status: []Pt alert and oriented, casually dressed and groomed. Eye contact good. Motor activity appropriate. Speech within normal limits. Affect flat, mood anxious and depressed. Thoughts linear, logical, no signs of hallucinations or delusions. Client Response/Progress/Benefit: [] Pt receptive to session AEB contributing to small group discussion, as well as listening attentively to others, and taking notes. Worked with group to brainstorm the positive and negative aspects of stress on physical and mental health. Group did well to identify the benefits of stress as well as the impact of distress on performance, relationships, and mental health. Pt identified their personal top stressors as: not sleeping, physical pain, and relationship with his friends. Pt seemed to benefit from increased awareness of current stressors and impact stress has on mental health. Pt will continue IOP tx to prevent decompensation, improve distress tolerance skills, and improve daily functioning. Narrative Note: []
--- NOTE | 2023-07-02 11:10 | BH.SGPN.GN ---
Behaviors/Verbalizations/Mental Status: []Eye contact is good. Motor activity is appropriate. Appearance is casual. Speech is Appropriate. Mood is dysthymic. Affect is congruent. Thoughts are linear and logical. No evidence of psychosis. Client Response/Progress/Benefit: []Pt was an active participant in group discussions and experiential activity. Attentive during psychoeducation on the 4 A's (Avoid, adapt, alter, accept) of coping with stress. Shared that he would benefit most from working on focusing on what's within his control instead of spending so much time worried about what he can't change. Was able to identify the connection between the experiential activity and utilization of stress management skills. Benefited from increased awareness of stress management strategies. Will continue in IOP to challenge distortions, build confidence, and prevent decompensation.
--- NOTE | 2023-07-06 09:05 | BH.SGPN.GN ---
Behaviors/Verbalizations/Mental Status: [] Eye contact is poor. Motor activity is appropriate. Appearance is casual. Speech is Appropriate. Mood is depressed. Affect is flat. Thoughts are linear and logical. No evidence of psychosis. Reviewed daily check in sheet and no reports of suicidal ideations or intent. Client Response/Progress/Benefit: [] Pt participated when prompted. Attentive, however poor eye contact. Looking down at the floor. Daily symptom tracker notes 4/5 for anxiety and 3/5 for depression. Shared with the group that he is having significant marital distress, however did not elaborate on any specifics. This therapist later found out that his asked for a divorce, however he did not disclose this during group. Verbalized that despite his marital conflicts he believes that he has been managing his mood better than before . Shared use of skills such as reframing, affirmation, reality testing, and mindfulness. States that overall he was able to find some positives over the weekend which include spending time with friends. Limited progress noted due to recent psychosocial stressor. Benefited from group support, encouragement, and feedback. Will continue in IOP to maintain safety, stabilize mood, prevent decompensation, and improve functioning to return to work. Narrative Note: []
--- NOTE | 2023-07-06 10:10 | BH.SGPN.GN ---
Behaviors/Verbalizations/Mental Status: []Pt alert and oriented, casually dressed and groomed. Eye contact fair. Motor activity appropriate. Speech within normal limits. Affect constricted, mood tired and dysthymic. Thoughts linear, logical, no signs of hallucinations or delusions. Client Response/Progress/Benefit: [] Pt active participant AEB pt providing input throughout group discussion. Pt attentive during psychoeducation about defense mechanisms. Showed engagement during small group discussions and helped group identify which defense mechanisms were maladaptive, adaptive, or ?somewhere in the zimmer.? Pt started to work with group on identifying how each defense mechanism can impact mental health and gave examples. Pt gave personal example of using denial and suppression which leads pt to isolate. Seemed to benefit from gaining awareness about the different defense mechanisms. Pt to continue IOP tx to promote use of healthy coping skills, increase distress tolerance, and improve daily functioning. ? Narrative Note: []
--- NOTE | 2023-07-06 10:10 | BH.SGPN.GN ---
Behaviors/Verbalizations/Mental Status: []Pt alert and oriented, casually dressed and groomed. Eye contact good. Motor activity appropriate. Speech within normal limits. Affect flat, mood tired and depressed. Thoughts linear, logical, no signs of hallucinations or delusions. Client Response/Progress/Benefit: [] Pt active participant AEB pt providing input throughout group discussion. Pt attentive during psychoeducation about defense mechanisms. Showed engagement during small group discussions and helped group identify which defense mechanisms were maladaptive, adaptive, or ?somewhere in the zimmer.? Pt started to work with group on identifying how each defense mechanism can impact mental health and gave examples. Pt gave personal examples of how using denial and suppression leads to isolation. ?Seemed to benefit from gaining awareness about the different defense mechanisms. Pt to continue IOP tx to improve mood stability, reduce negative thinking patterns, and increase distress tolerance skills. Narrative Note: []
--- NOTE | 2023-07-06 11:10 | BH.SGPN.GN ---
Behaviors/Verbalizations/Mental Status: []Pt alert and oriented, casually dressed and groomed. Eye contact good. Motor activity appropriate. Speech within normal limits. Affect flat, mood depressed. Thoughts linear, logical, no signs of hallucinations or delusions. Client Response/Progress/Benefit: [] Pt responded well to session, participating in activity and small group discussion. Group reviewed the rest of the defense mechanisms and discussed how these are adaptive, maladaptive, or somewhere in the zimmer. Pt participated in the experiential activity which encouraged pts to draw a castle that portrayed their different defense mechanisms. Pt's defense mechanisms included humor, anticipation, and suppression. Pt shared she used to use isolation a lot as a defense mechanism, but pt is reaching out more. Pt reports wanting to work on his anticipation and learning how to not ?overthink and plan.? Pt appeared to benefit from gaining insight to the different defense mechanisms and learning coping skills. Pt will continue IOP tx to prevent decompensation, improve ability to combat distortions, and increase self-validation. ? Narrative Note: []
--- NOTE | 2023-07-07 10:39 | BH.MDN ---
Multi-Disciplinary Note Note 45-min Individual: Time Started:: 10:10 Date: 07/07/23 Purpose of session/treatment goals addressed:: Purpose of session was to address treatment plan goal #2, objectives #1 & #2. Eye Contact:: Good Motor Activity:: Restless Appearance:: Casual Speech:: Appropriate Mood:: Euthymic Affect:: Congruent Thoughts:: Linear, Logical and No evidence of hallucinations/delusions noted Staff Interventions:: thought challenging, CBT techniques, strengths perspective, treatment planning and reviewed DSM-5 Client Response:: Pt reports overall he continues to see improvements in his mood and consistency of skill application since beginning tx. Noted plans to begin going for regular hikes on a trail by his grandparents home. Shared that he continues to experience anxiety regarding his return to work and has decided to wait until next week to return. Pt shared that he is worried about what his coworkers will say or ask him about his time off. Discussed fears that others will have a stigma associated with mental health and view him as being lazy for taking the last two weeks off. Pt did well to identify and challenge his use of distorted thinking patterns. 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 Shared plans to do so this afternoon. Pt went on to discuss that his marriage has recently been a stressor as his shared she has been considering separation. Explained she has mentioned this before which is why they briefly began couple?s counseling about a year ago. Pt shared that this time of year is often hard for his as it is a trauma anniversary. Noted she has also recently started homeschooling their two daughters, which has been a major stressor. Pt believes her current stress levels may be contributing to dissatisfaction in the marriage, noting they has had limited time to connect with one another over the last few months. Discussed wanting to schedule more time to intentionally connect with one another, even if unable to go out on regular dates. Pt noted he and his have previously completed the Love Languages assessment, shared he could take steps to better accommodate her preferred love language of ?Acts of Service?. Pt identified a goal of more with small household responsibilities to aid in reducing overall stress levels. Risks/Concerns:: Pt denies any active SI, plan, or intent as of this date, 07/07/23 Progress Toward Goals/Plan:: Progress variable. Pt reports continued progress with improved mood and engagement in self-care activities. Does indicate some increase in irritability due to ongoing physical pain issues. Pt additionally reports increased anxiety about return to work, resulting in pushing off his start date by another week. Pt does have insight into skills he can use and steps to ease his transition back to work; however, continues to struggle with follow-through of identified steps. Pt completed a return to work coping plan as well. Reports new relationship tension, though feels confident in his ability to apply healthy communication skills to navigate ongoing interpersonal stress and better support his partner. Recommended continued IOP tx to promote mood stability, reduce anxiety and use of avoidance, as well as support pt as he transitions back to work. Time Stopped:: 10:48
--- NOTE | 2023-07-14 09:05 | BH.SGPN.GN ---
Behaviors/Verbalizations/Mental Status: [ Patient was alert and oriented, appropriately dressed and groomed. Eye contact was good, motor activity normal, speech within normal limits. Affect congruent, mood anxious. Thoughts linear, logical, no signs of hallucinations or delusions. Reviewed Patients symptom tracker and the patient reports depressed mood, anxiety/panic attacks, agitation/irritability/anger, self-harm urges, and thoughts/risk of suicide within normal limits.] Client Response/Progress/Benefit: [Patient was engaged and open to the discussion. Patient reported his mood to be ?Anxious?. Patients first win is that his daughters have been extra erick with him this week and he enjoys spending time with them. Patient stated he was not able to come up with a second win. Patient shared his stressor is that he is starting work next week and this has amplified his anxiety. He shared that he has considered switching shifts or jobs in general because he has noticed his mental health symptoms worsening when it comes to his job. Patient was interactive and respectful with other group members about their mental wins and stressors. Patient benefited from the discussion by listening to feedback and giving input on his peer?s stressors and mental health wins. Patient will continue with IOP treatment to help develop healthy skills, promote mood stability, and improve distress tolerance. ] Narrative Note: []
--- NOTE | 2023-07-14 10:15 | BH.SGPN.GN ---
Behaviors/Verbalizations/Mental Status: [] Eye contact is good. Motor activity is appropriate. Appearance is casual. Speech is Appropriate. Mood is depressed. Affect is flat. Thoughts are linear and logical. No evidence of psychosis. Client Response/Progress/Benefit: [] Pt was an active participant in group discussions AEB listening attentively to others and providing feedback at times. Participated in and was engaged during experiential activity. Able to relate activity to group topic of FOF. Engaged during interactive discussion on what failure means to the group in which peers identified and defined failure. Group was able to identify impact of fear of failure on mental health identifying that it can cause isolation, procrastination, resentment, and complacency . Attentive during interactive discussion on the role that FOF plays in mental wellness, depression, anxiety, and growth. Benefited from increased awareness of how the role that FOF plays in mental health and decision-making. Will continue in IOP maintain safety, increase healthy coping, and increase functioning to return to work. Narrative Note: []
--- NOTE | 2023-07-14 11:10 | BH.SGPN.GN ---
Behaviors/Verbalizations/Mental Status: []Pt alert and oriented, neatly dressed and groomed. Eye contact good. Motor activity appropriate. Speech within normal limits. Affect constricted, mood depressed. Thoughts linear, logical, no signs of hallucinations or delusions. Client Response/Progress/Benefit: [] ?Pt responded well to session, engaged in the experiential activity and attentive throughout group processing. Pt reported fear of failure has kept Pt from learning more hobbies, making friends, and things he enjoys. Pt completed fear of failure worksheet and was able to identify thoughts and behaviors that reinforce personal fear of failure including self-doubt, past failures, and negative/distorted thought patterns. Pt participated in group discussion regarding strategies to overcome fear of failure. Identified wanting to work on collecting ?the positive evidence? to combat negative self-talk. Appeared to benefit from increased knowledge of strategies to combat fear of failure and gaining self-awareness. Pt will continue IOP tx to promote mood stability, reduce anxiety, and improve distress tolerance. ? Narrative Note: []
--- NOTE | 2023-07-14 11:52 | PCM.BH.PN_ITS ---
Progress Note Progress Note: History of Present Illness/Interim History: The patient is a 27-year-old male with a history of bipolar 2 disorder, depression, PTSD and anxiety who is seen in follow-up at the [facility] behavioral health [facility]. I last saw the patient 3 weeks ago and at that time his Seroquel dose was increased to 300 mg at bedtime and Vistaril was added as needed for panic attacks. The patient feels he is doing much better since last visit. He is much less depressed but still notices some anxiety when driving. He plans to return to work next week and he feels this has caused somewhat of an increase in his anxiety as he is worried about this. He is also stressed by his asking for divorce a week ago but he states that now he thinks his may not want a divorce but he is uncertain. His sleep is improved to about 7 or 8 hours a night. He had 2 panic attacks yesterday and he thinks this happened when he thinks about going back to work. He takes the Vistaril and it does help him tolerate the panic attacks. He feels he is learning valuable skills in the IOP. He is not using any caffeine. His testosterone level was done and was within normal limits. He has occasional passive thoughts of when he gets really anxious but he denies any suicidal ideation, plan for suicide, homicidal ideation, hallucinations or delusions. Current Psychiatric Medications: [] Seroquel 300 mg p.o. nightly (x 3 weeks); Vistaril 25 mg, takes 1-2 as needed for panic attacks. Mental Status Examination: [] The patient is a 27-year-old male who has a fonseca and appears normal for stated age and is casually dressed and groomed with good hygiene. He has no psychomotor agitation or retardation. He is cooperative during the interview. Eye contact is good and speech is normal rate and rhythm and fluent with no pressure. Mood is mildly depressed. Affect is mildly constricted. Thought processes goal-directed and organized. Thought content: Patient is worried about returning to work next week. There is no evidence of suicidal ideation, plan for suicide, homicidal ideation, hallucinations, delusions or carlos a symptoms. He is worried about returning to work. Reality testing is intact. Intelligence is average. Judgment is intact. Insight is limited but some present. Impulsivity is moderate to high. Diagnoses: [] 1. Bipolar 2 disorder 2. Generalized anxiety disorder 3. PTSD 4. Strong cluster B traits 5. Primary support and work issues Plan: [] The patient will continue the IOP at [facility] as the structure, support, education and group therapy will hopefully prevent worsening of the patient's symptoms which could require hospitalization. He felt safe during the interview and if it anytime he does not feel safe he will let us know or go to the emergency room. No medication changes were made today. The patient is planning to see marriage counseling with his next week. He plans to return to work soon. He will continue to follow-up with his outpatient providers and I will see the patient in follow-up while he is in the IOP.
--- NOTE | 2023-07-14 14:26 | BH.MTP_ITS ---
Treatment Plan Review Demographics Date of Admission:: 06/23/23 Date of Treatment Plan Review:: 07/14/23 Admitting Diagnoses:: 1. Bipolar 2 disorder (most recently depressed) 2. Generalized anxiety disorder 3. PTSD 4. Strong cluster B traits Current Diagnoses:: 1. Bipolar 2 disorder (most recently depressed) 2. Generalized anxiety disorder 3. PTSD 4. Strong cluster B traits Patient Status Patient's Response to Treatment:: Pt has responded somewhat well to treatment. His attendance has been variable, with several reschedules or cancellations since beginning tx 3 weeks ago. When in attendance, Pt contributes at times to group discussions and reports follow through on using skills outside treatment environment. Status of Current Problems and Symptoms: Pt is reporting decreased depression and anxiety. Pt still reports mild to moderate anxiety and depression, but notes improvement. Pt reports having improved motivation to get tasks completed around the house, engage with his children, and get back into activities he enjoys. Pt was struggling with lack of sleep, but reports this is starting to improve as well; however continues to struggle on days his physical pain is severe. Pt wants to work on being able to manage crises more effectively, better communicate boundaries with his supports, and maintain consistency. Pt states struggling with increased anxiety when thinking about returning to work and continues to avoid doing so as a result. Per pt's DSM 5 cross-cutting scores at review his overall mental health symptoms have decreased by 37%. Progress Problem #1: Problem Name:: Depression Status of Goals:: Obj 1 - met. Client can identify healthy coping skills like opposite action, taking a break, self-care, socializing, and changing environment. Per DSM 5 client's depression has reduced by 38%. Obj 2 ? continued progress encouraged. Client reports reduced isolation and increased engagement in activities outside of the home through spending time with friends/family as well as going for walks. However, is not consistent in doing so and continues to struggle with motivation at times. Client could benefit from reinforcement of skills and continued practice on challenging himself to use opposite action on own. Team Recommendations:: Team recommends continued work on current goals and objectives to reinforce skills. Will focus on helping client identify ways to start trusting others and start building a consistent healthy support network. Problem #2: Problem Name:: Anxiety Status of Goals:: Obj 1 - met, ongoing work encouraged. Pt is able to identify triggers, as well as healthy calming skills like breathing, grounding, meditation, and mindfulness. Pt has reported improvement with using these ski lls, but could benefit from reinforcement to demonstrate consistency of skill use. Per DSM 5, anxiety has reduced by 10%. Pt continued avoidance of work which is a primary source of his anxiety my be impeding more significant progress Obj 2 - progress noted, ongoing work encouraged. Pt can identify distortions which reinforce his anxiety and is making progress on reframing and replacing these. However, pt could benefit from continued work in this area to improve consistency of skill application outside of tx environment. Team Recommendations:: Team recommends continued work on current goals and objectives to reinforce skills. Will focus on helping client adjust his coping plan that he can use if faced with triggers when returning to work.
--- NOTE | 2023-07-21 10:36 | BH.DS ---
Discharge Summary Demographics Date of Admission:: 06/23/23 Discharge Date: 07/21/23 Presenting Problems at Admission:: Pt is a 27-year-old male with a history of bipolar 2 disorder, depression, PTSD and anxiety who completed the [facility] behavioral health IOP in January 2022. He was referred back to the IOP by his counselor on June 18, 2023 for worsening symptoms of depression for the past 2 months. Pt reports his sx have resulted in receiving an attendance warning at work due to missing 3 days in the past 2 months as he reports he was too depressed to get out of bed. Pt?s symptoms have been steadily worsening since March and on June 18 when meeting with his outpatient therapist, pt reported her had suicidal ideation with plan to use a propane tank on the but his sister was able to calm him down. Pt previously had a plan for suicide with a propane tank in January 2022 when last in the IOP program. Denies SI in the last week since. Current stressors include interpersonal conflict with his two best friends, occupational and financial stress, and physical pain due to ongoing medical issues. Pt additionally reports an inability to sleep and shares he has not slept in the last 23 hours. At time of admission pt endorses depression, isolation, negative self-talk, guilt, hopelessness, suicidal ideation last week, irritability and verbal outbursts, anhedonia, sleep disturbances, low motivation, poor concentration, mood instability, crying spells, and fears of abandonment. The patient additionally has a hx of childhood trauma and indicates experiencing flashbacks, nightmares, reexperiencing and avoidance due to his past history of trauma. Pt recommended IOP level of care due to mental health sx impacting social and occupational functioning, as well as his ability to complete daily responsibilities. Discharge Diagnoses:: 1. Bipolar 2 disorder (most recently depressed) 2. Generalized anxiety disorder 3. PTSD 4. Strong cluster B traits Reason for Discharge:: Pt has had multiple no call/no shows and cancellations since beginning the IOP program 4 weeks ago. Pt has additionally reported several external stressors including childcare and returning to work as barriers to attendance. Due to pt attendance inconsistency, he has not been in adherence with the attendance policy and has therefore been unable to make consistent tx progress. Pt is connected with [facility] for outpatient counseling and medication management through Dr. Fraire with [facility]. Pt been provided with additional resources for DBT specific group therapy through [facility] and recommended to return to couple?s counseling given recent marital stressors. Treatment Progress During Treatment & Response: Variable progress due to inconsistent attendance and self-report of not following consistently following through with homework, treatment goals, or coping skills for better addressing and managing anxiety about return to work. Pt took notes and appeared engaged when he attended. He was actively engaged in individual sessions, pt?s biggest difficulties were in application of skills outside the treatment environment and difficulties with motivation. At time of his 3 week review however, pt had reported improved mood, hopefulness, and improving use of effective communication skills with his as well as self-care activities. DSM scores at time of review indicated a 37% overall, 38% reduction in depression, and only 10% reduction in anxiety which may be associated with inconsistent tx attendance and skill application. Issues Still to be Addressed:: Would benefit from continued work on communication, emotion regulation, and conflict resolution skills. Recommended to continue with counseling to work on distress tolerance skills, thought challenging and self-care to continue to address depression, anxiety, intrusive thought patterns, and overall mood management. Discharge Recommendations/Instructions:: [facility] and Dr[facility] Fraire at [facility] for continued medication management. Pt is recommended to follow-up with DBT group counseling through [facility] and was provided referral resources, as well as re-engage in couple?s counseling. Discharge Handout
== END 2023-07-21 07:43 | disposition home or self-care (01) ==
LOC: BHIOP 07:52
PROVIDERS: Referring Provider Psychiatry & Neurology Psychiatry; Visit Provider Psychiatry & Neurology Psychiatry
DX: F31.9 Bipolar disorder, unspecified (principal); F41.1 Generalized anxiety disorder; F43.10 Post-traumatic stress disorder, unspecified
CPT/HCPCS: S9480; 90832; 90834; 90853

== ENCOUNTER 2025-02-17 01:27 | Emergency (ER) | payer BC, SELFPAY ==
[2025-02-17 01:29] VITALS: BP 140/92; PULSE 61; RESP 16; TEMP 35.8; O2SAT 98; BMI 33.0
--- NOTE | 2025-02-17 01:30 | EKG12_ITS ---
Test Reason : CP Blood Pressure : */* mmHG Vent. Rate : 54 BPM Atrial Rate : 54 BPM P-R Int : 160 ms QRS Dur : 106 ms QT Int : 420 ms P-R-T Axes : 63 22 52 degrees QTcB Int : 398 ms Sinus bradycardia Otherwise normal ECG Confirmed by LIANA JACOBS ([id number]), food expeditor CHELLY VERDIN ([id number]) on 02/19/2025 8:45:32 AM Referred By: Confirmed By: LIANA JACOBS
[2025-02-17 01:45] LABS: Hematocrit 46.4 % (40-54); Hemoglobin 15.8 g/dL (13.0-16.5); Immature Granulocytes Count 0.030 X10^3/uL (0.0-0.0); Mean Corp Hgb Conc 34.1 g/dL (32-36); Mean Corpuscular Volume 87.1 fL (80-94); Mean Platelet Vol. 9.6 fl (6.2-12.0); NRBC Flagged by Analyzer 0 % (0-5); Platelet Count 235 K/mm3 (150-450); RBC Distribution Width CV 12.3 % (11.6-14.6); RBC Distribution Width SD 39.5 fl (35.1-43.9); Red Blood Count 5.33 M/mm3 (4.6-6.2); White Blood Count 5.2 K/mm3 (4.4-11.0)
[2025-02-17 02:03] LABS: Anion Gap 10 (5-15); BUN 15 mg/dL (4-19); BUN/Creat Ratio 16.9 RATIO (10-20); Calcium,Total 9.0 mg/dL (7.6-11.0); Carbon Dioxide 22.8 mmol/L (21.0-32.0); Chloride 107 mmol/L (98-108); Estimated Creatinine Clearance 151.70 ml/min (50-250); Glucose 84 mg/dL (70-99); Potassium 4.1 mmol/L (3.3-5.1); Troponin T High Sensitivity < 6 ng/L (<=22)
--- NOTE | 2025-02-17 02:14 | RAD_ITS ---
PROCEDURE: CHEST 1 VIEW (PORTABLE) 02/17/2025 REASON FOR EXAM: CHEST PAIN TECHNIQUE: Frontal view of the chest. COMPARISON: None. FINDINGS: Mild bilateral basilar atelectatic pulmonary changes. There is no demonstrated pleural abnormality. Normal heart and pericardium. Normal mediastinum and aysah. Normal visualized pulmonary arteries. Normal visualized aortic arch and descending thoracic aorta. Normal visualized thoracic spine. Normal visualized ribs, clavicles, and shoulders. There is no demonstrated abnormality of the visualized soft tissue structures of the upper abdomen. RAD/Chest 1 View (Portable) IMPRESSION: Mild bilateral basilar atelectatic pulmonary changes. Reading [facility]
[2025-02-17 03:11] VITALS: BP 131/87; PULSE 54; RESP 16; O2SAT 97
--- NOTE | 2025-02-17 03:26 | EDS_ITS ---
HPI History of Present Illness Chief Complaint: Chest Pain [facility] Medical History Cannabis use disorder Nicotine use disorder PTSD (post-traumatic stress disorder) Generalized anxiety disorder Bipolar 2 disorder Home Medications ?Medication ?Instructions ?Recorded ?Last Taken ?Type levothyroxine 25 mcg tablet 25 mcg PO DAILY 06/23/23 U
--- NOTE | 2025-02-17 03:26 | ED.VIS.CHEST ---
HPI History of Present Illness Chief Complaint: Chest Pain [facility] Medical History Cannabis use disorder Nicotine use disorder PTSD (post-traumatic stress disorder) Generalized anxiety disorder Bipolar 2 disorder Home Medications ?Medication ?Instructions ?Recorded ?Last Taken ?Type levothyroxine 25 mcg tablet 25 mcg PO DAILY 06/23/23 Unknown History (Euthyrox) hydroxyzine pamoate 25 mg capsule 50 mg (2 x 25 mg) PO QHS #180 caps 11/23/24 Unknown Rx (Vistaril) lamotrigine 100 mg tablet 100 mg PO QDAY #90 tabs 11/23/24 Unknown Rx quetiapine 300 mg tablet 300 mg PO QHS 90 days #90 tabs 11/23/24 Unknown Rx Allergy/AdvReac Type Severity Reaction Status Date / Time No Known Allergies Allergy Verified 02/17/25 01:28 Family History Other Alcoholism Anxiety Arthritis CVA (cerebral vascular accident) Cancer Depression Hypertension Myocardial infarction Surgical History History of hernia repair No history of previous surgery Social History Smoking Status: Former smoker alcohol intake: never substance use type: marijuana EXAM Physical Exam Const Vital Signs: 02/17/25 01:29 02/17/25 03:11 02/17/25 03:22 Temperature 96.4 F L Temperature Source Temporal Pulse Rate 61 54 L Respiratory Rate 16 16 Respiratory Effort Normal Blood Pressure 140/92 H 131/87 H Blood Pressure Mean 108 101 Pulse Ox 98 97 Oxygen Delivery Method Room Air Room Air 02/17/25 03:22 02/17/25 04:00 02/17/25 05:00 Temperature Temperature Source Pulse Rate 54 L 63 Respiratory Rate 17 18 Respiratory Effort Blood Pressure 130/90 H 135/89 H Blood Pressure Mean 103 104 Pulse Ox 97 96 Oxygen Delivery Method Room Air Room Air Room Air MDM MDM MDM Narrative Medical decision making narrative: HISTORY OF PRESENT ILLNESS: Chief complaint: Chest pain 29-year-old male history of cannabis use, nicotine use, PTSD, anxiety and bipolar disorder presents with chest pain. He states he is experiencing left upper chest pain for 1 week. Notes is worse with exertion. Notes pain is hours after food. Denies shortness of breath associated. Denies syncope. Notes dad had heart issues in his late 40s. Denies illicit drug use. Denies nausea or vomiting. Denies any bleeding diathesis. Denies recent cough fever chills The patient denies recent surgery in the last 4 weeks or immobilization in the last 3 days, denies previous diagnosis of DVT or PE, hemoptysis, unilateral leg swelling or malignancy with treatment the last 6 months or palliative. No estrogen use noted. Patient denies sudden onset of pain, no tearing sensation, no migratory symptoms, no new numbness, weakness or loss of sensation. Patient denies family history or personal history of Connective tissue disorders (Marfan's Syndrome, Lisa Danlos etc) REVIEW OF SYSTEMS: Pertinent positives: Chest pain Pertinent negatives: Syncope PHYSICAL EXAM: Nursing triage notes reviewed, Vital signs reviewed Constitutional: please see [facility] HENT: MMM Eyes: Pupils equal round and reactive to light, Extraocular muscles intact Neck: No stridor, no JVD, full neck ROM Lungs: Clear to auscultation, No wheezing or rales. No increased work of breathing, no conversational dyspnea, no accessory muscle use, no nasal flaring. No respiratory distress noted Heart: Regular rate and rhythm, No murmurs, No rubs and No gallops, 2+ distal pulses (radial, femoral, posterior tibial) in all extremities Abdomen: Soft, there is no tenderness, rigidity, rebound or guarding, no obvious peritoneal signs, no palpable pulsatile abdominal masses, no auscultated abdominal bruit : No CVAT Extremities: No edema Neuro: No new focal neurological deficits, cranial nerves II through XII intact, 5/5 strength in all present extremities. Intact sensation to light touch in all present extremities, 2+ reflexes bilateral patella tendons. Skin: No rash or lesions noted MEDICAL DECISION MAKING: Chief Complaint: please see HPI External records reviewed: Reviewed prior cardiovascular testing Factors affecting care: As per HPI Social determinants of health: n denies cocaine or illicit drug History obtained from others: none Consults: none [facility] Narrative: The patient was initially hemodynamically stable, afebrile and nontoxic-appearing. Examwithout focal cardiopulmonary abnormalities. I considered the following differential diagnosis: ACS, arrhythmia, anemia, electrolyte disturbance, pneumothorax, pneumonia, pericarditis, PE, aortic dissection I obtained broad lab and imaging work to further determine if the patient was suffering from a life-threatening etiology. The patient's history and physical exam not consistent with pulm embolism or aortic dissection as such further testing such as D-dimer or CT scan of the chest was not indicated at this time. ALL IMAGES (IF OBTAINED) HAVE BEEN PERSONALLY REVIEWED AND INTERPRETED BY MYSELF. Initial EKG with sinus bradycardia rate 54, normal axis, normal intervals, no sign hydra block, no STEMI, no sign of right heart strain CBC without leukocytosis, severe anemia, no thrombocytopenia. BMP without evidence of significant electrolyte abnormalities, no anion gap, no acute kidney injury. High-sensitivity troponin is negative, no evidence of myocardial ischemia x2 I have personally reviewed the patient's chest x-ray. Chest x-ray is unremarkable for pulmonary edema, pneumothorax, pneumonia or focal cardiopulmonary abnormality. Upon reevaluation patient remained hemodynamically stable. Labs images were overall unremarkable. There is no definitive explanation for symptoms. Specifically no sign of acute life or limb threatening etiology. Encouraged outpatient evaluation for stress test. Strict return precautions were discussed The patient and/or family, caregivers express understanding. The patient and/or family, caregivers agrees with the plan. Shared decision making: I will have a discussion with the patient and or visitors regarding risk/benefits of further testing or admission. They will be made aware of of the risk/benefits inherent in this decision they will be given the opportunity to voice understanding. Total critical care time today provided was at least 0 minutes. This excludes separately billable procedures. Critical care time (if documented) is secondary to the patient having high probability of clinically significant/life threatening deterioration in the patient's condition which required my urgent intervention. Impression: 1. Chest pain 2. History of nicotine use disorder Dispo: Discharge home This note was generated with [employer] dictation software. It may contain incorrect words, spelling, and punctuation that were not noted in review of the chart prior to signing. Lab Data Labs: Laboratory Results - last 24 hr 02/17/25 02/17/25 01:37 03:32 WBC 5.2 RBC 5.33 Hgb 15.8 Hct 46.4 MCV 87.1 MCH 29.6 MCHC 34.1 RDW Std Deviation 39.5 RDW Coeff of Stan 12.3 Plt Count 235 MPV 9.6 Immature Gran % (Auto) 0.600 Neut % (Auto) 54.6 Lymph % (Auto) 31.2 [place] % (Auto) 11.1 H Eos % (Auto) 1.7 Baso % (Auto) 0.8 Absolute Neuts (auto) 2.9 Absolute Lymphs (auto) 1.63 Nucleated RBC % 0 Sodium 139 Potassium 4.1 Chloride 107 Carbon Dioxide 22.8 Anion Gap 10 BUN 15 Creatinine 0.88 Estim Creat Clear Calc 151.70 Est GFR (MDRD) Non-Af 118 BUN/Creatinine Ratio 16.9 Glucose 84 Calcium 9.0 Troponin T High Sens < 6 Troponin T Hi Sens 2 Hr < 6 Radiography Diagnostic Testing: Clinical Impression(s) from Imaging Studies Chest X-Ray 02/17/25 02:14 IMPRESSION: Mild bilateral basilar atelectatic pulmonary changes. [facility] [id number] Discharge Plan Triage Chief Complaint: Chest Pain ED Provider: Johny Joyce Dx/Rx/DC Orders Prescriptions: No Action levothyroxine [Euthyrox] 25 mcg tablet 25 mcg PO DAILY hydroxyzine pamoate [Vistaril] 25 mg capsule 50 mg PO QHS Qty: 180 2RF lamotrigine 100 mg tablet 100 mg PO QDAY Qty: 90 1RF quetiapine 300 mg tablet 300 mg PO QHS 90 Days Qty: 90 1RF Primary Care Provider: Garry Merino Referrals: Garry Merino MD [Primary Care Provider, Family Practice] Print Language: Ukrainian
[2025-02-17 04:00] VITALS: BP 130/90; PULSE 54; RESP 17; O2SAT 97
[2025-02-17 04:01] LABS: Troponin T High Sens 2 HR < 6 ng/L (<=22)
[2025-02-17 05:00] VITALS: BP 135/89; PULSE 63; RESP 18; O2SAT 96
[2025-02-17 05:23] VITALS: BP 133/95; PULSE 67; RESP 16; TEMP 36.6; O2SAT 100
== END 2025-02-17 05:28 | disposition home or self-care (01) ==
PROVIDERS: Emergency Provider Emergency Medicine; PCP Family Medicine; Visit Provider Emergency Medicine
DX: R07.9 Chest pain, unspecified (principal); F31.81 Bipolar II disorder; F41.1 Generalized anxiety disorder; Z79.890 Hormone replacement therapy; Z79.899 Other long term (current) drug therapy; Z87.891 Personal history of nicotine dependence
CPT/HCPCS: 71045; 80048; 84484; 85025; 93005; 99284; A4216